=== PATIENT | male | born 1940 | race Caucasian/White ===

== ENCOUNTER 2017-09-04 15:41 | Inpatient (IN) | payer MEDICARE, BC ==
[~2017-09-04] VITALS: Ht 185.4 cm; Wt 102.3 kg
--- OUTSIDE RECORDS SUMMARY | 2017-09-04 15:44 | XMS REPORT | Clinical Summary ---
Author Author [facility] Address Unknown Phone Unavailable Care Team Providers Care Regulatory Compliance Officer Name Role Phone Trip Mcgee MD PCP Unavailable Allergies Not on File Current Medications Not on file Active Problems Not on file Encounters Date Type Specialty Care Team Description 02/02/2017 Hospital Radiology Dinah Santoro MD Calculus, renal Encounter 02/02/2017 Transcribe Access Dinah Santoro MD Calculus, renal ( Primary Orders Dx) after 09/03/2016 Social History Tobacco Use Types Packs/Day Years Used Date Never Assessed Sex Assigned at Date Recorded Not on file Last Filed Vital Signs Not on file Plan of Treatment Health Maintenance Due Date Last Done Comments COLONOSCOPY 1992 ZOSTER VACCINE 2002 PNEUMOCOCCAL 10/20/2007 POLYSACCHARIDE VACCINE AGE 65 AND OVER PNEUMOCOCCAL-13 10/20/2007 INFLUENZA VACCINE 01/19/2017 Results * XR Kub Kidney Ureter Bladder (02/02/2017 4:40 PM) Specimen Performing Laboratory [facility] [address] [place] [address] Narrative EXAMINATION:XR KUB KIDNEY URETER BLADDER CLINICAL HISTORY:N20.0 Calculus of kidney, N20.0 COMPARISON:None. IMPRESSION: 1.No definite stones are seen overlying the kidneys bilaterally. There is a calcific density in the right pelvis measuring 3 mm more likely related to a phlebolith although a distal right ureteral stone cannot be excluded. Correlation with the patient's symptoms for right flank pain is recommended. 2.Osseous structures are intact. The bowel gas pattern is normal. [id number] Procedure Note Interface, Radiology Results Incoming - 02/02/2017 4:48 PM CDT EXAMINATION: XR KUB KIDNEY URETER BLADDER CLINICAL HISTORY: N20.0 Calculus of kidney, N20.0 COMPARISON: None. IMPRESSION: 1. No definite stones are seen overlying the kidneys bilaterally. There is a calcific density in the right pelvis measuring 3 mm more likely related to a phlebolith although a distal right ureteral stone cannot be excluded. Correlation with the patient's symptoms for right flank pain is recommended. 2. Osseous structures are intact. The bowel gas pattern is normal. [id number] after 09/03/2016 Insurance Payer Benefit Subscriber ID Type Phone Address Plan / Group MEDICARE MEDICARE xxxxxxxxxx Medicare [place], [place] PART A AND B BCBS BCBS xxxxxxxxxxxx Indemnity PAR/TRAD PLAN
[2017-09-04] MEDS ORDERED: MELOXICAM7.5 MG PO (15:53)
[2017-09-04] MEDS ORDERED: IRON TABLET (15:53)
[2017-09-04] MEDS ORDERED: TAMSULOSIN HCL0.4 MG PO (15:53)
[2017-09-04] MEDS ORDERED: DEXILANT60 MG PO (15:53)
[2017-09-04] MEDS ORDERED: SLOW FE PO (15:54)
[2017-09-04] MEDS ORDERED: COLACE100 MG PO (15:55)
[2017-09-04] MEDS ORDERED: AREDS 2 PO (15:55)
[2017-09-04] MEDS ORDERED: PANTOPRAZOLE 40 MG 10ML VIAL IV STA (16:10)
[2017-09-04] MEDS ORDERED: LEVOFLOXACIN 500MG/D5W 100ML 100 ML IV STA (16:10)
[2017-09-04] MEDS ORDERED: ACETAMINOPHEN 325 MG TAB PO STA (16:10)
[2017-09-04] MEDS ORDERED: SODIUM CHLORIDE 0.9% 1000ML 1,000 ML IV STA ×4 (16:10→18:48)
[2017-09-04] MEDS ORDERED: CEFEPIME HCL 2 GM VIAL IV ONE (16:15)
[2017-09-04 16:28] LABS: BASOPHILS % 0.2 % (0.0-1.0); EOSINOPHILS % 0.2 % (0.0-6.0); HEMATOCRIT 39.9 % (38.2-49.6); HEMOGLOBIN 13.2 g/dL (14.0-18.0); LYMPHOCYTES # (AUTO) 0.2 (1.0-3.2); LYMPHOCYTES % 2.1 % (18.0-39.1); MEAN CORPUSCULAR HEMOGLOBIN 26.2 pg (28-32); MEAN CORPUSCULAR HGB CONC 33.1 g/dL (31-35); MEAN CORPUSCULAR VOLUME 79.2 fL (81-99); MONOCYTES % 0.4 % (4.4-11.3); NEUTROPHILS # (AUTO) 8.8 (2.1-6.9); NEUTROPHILS % 96.8 % (38.7-80.0); PLATELET COUNT 213 x10e3/uL (140-360); RED BLOOD COUNT 5.04 x10e6/uL (4.3-5.7); RED CELL DISTRIBUTION WIDTH 15.7 % (11.7-14.4)
[2017-09-04] MEDS ORDERED: ONDANSETRON HCL INJ 2 MG/ML VIAL IV PRN (16:30)
[2017-09-04 16:40] LABS: INR 1.25; PROTHROMBIN TIME 14.8 seconds (11.9-14.5)
[2017-09-04 16:41] LABS: PARTIAL THROMBOPLASTIN TIME 24.4 seconds (23.8-35.5)
[2017-09-04 16:51] LABS: ALBUMIN 2.9 g/dL (3.5-5.0); ALBUMIN/GLOBULIN RATIO 0.9 (0.8-2.0); ANION GAP 11.7 mmol/L (8-16); CALCIUM 8.6 mg/dL (8.4-10.2); CREATININE, SERUM 1.22 mg/dL (0.72-1.25); POTASSIUM 3.7 mmol/L (3.5-5.1)
[2017-09-04 16:52] LABS: KETONES,URINE TRACE (NEGATIVE); LEUKOCYTE ESTERASE ,URINE TRACE (NEGATIVE); NITRITE,URINE NEGATIVE (NEGATIVE); URINE UROBILINOGEN 4 mg/dL (0.2 - 1)
[2017-09-04 16:53] LABS: B-TYPE NATRIURETIC PEPTIDE2 99.2 pg/mL (0-100)
[2017-09-04 16:54] LABS: PROTEIN,URINE DIPSTICK 1+ (NEGATIVE)
[2017-09-04 16:55] LABS: BILIRUBIN,URINE 1+ (NEGATIVE); CLARITY,URINE HAZY (CLEAR); COLOR,URINE AMBER (YELLOW)
[2017-09-04 17:03] LABS: MAGNESIUM 1.2 MG/DL (1.3-2.1)
[2017-09-04 17:04] LABS: CREATINE KINASE MB 1.1 ng/mL (0-5.0); THYROID STIMULATING HORMONE 1.707 uIU/mL (0.350-4.940)
[2017-09-04 17:06] LABS: BACTERIA,URINE FEW /HPF; EPITHELIAL CELLS,URINE FEW /LPF; RBC,URINE 0-5 /HPF (0-5)
[2017-09-04 17:09] LABS: BAND NEUTROPHILS % (MANUAL) 13 %; LYMPHOCYTES % (MANUAL) 4 % (19-48); NEUTROPHILS % (MANUAL) 83 % (40-74)
[2017-09-04 17:10] LABS: PLATELET ESTIMATE ADEQUATE; PLATELET MORPHOLOGY COMMENT NORMAL; RBC MORPHOLOGY COMMENT NORMAL
[2017-09-04] MEDS ORDERED: MAGNESIUM SULFATE 2GM/50ML 50 ML IV ONE (17:15)
--- NOTE | 2017-09-04 17:54 | Diagnostic Imaging Report ---
EXAMINATION: CHEST SINGLE (PORTABLE) INDICATION: Fever. Severe shakes. COMPARISON: None FINDINGS: AP view TUBES and LINES: None. LUNGS: Lungs are well inflated. There is perihilar interstitial opacities, consistent with interstitial edema. PLEURA: No pleural effusion or pneumothorax. HEART AND MEDIASTINUM: The cardiomediastinal silhouette is unremarkable. There are atherosclerotic calcifications within the aorta. BONES AND SOFT TISSUES: No acute osseous lesion. Soft tissues are unremarkable. UPPER ABDOMEN: No free air under the diaphragm. IMPRESSION: Interstitial edema. Superimposed infection cannot be excluded. Signed by: Dr. Isrrael Kiran M.D. on 09/04/2017 5:50 PM
[2017-09-04] MEDS ORDERED: LEVOFLOXACIN 250MG/D5W 50ML 50 ML IV SCH (18:00)
--- OUTSIDE RECORDS SUMMARY | 2017-09-04 18:25 | XMS REPORT | Clinical Summary ---
Author Author [facility] Address Unknown Phone Unavailable Care Team Providers Care Scientist/Engineer Name Role Phone Trip Mcgee MD PCP [...] Bladder (02/02/2017 4:40 PM) Specimen Performing Laboratory [facility] [address] [place] [address] Narrative EXAMINATION:XR KUB KIDNEY URETER BLADDER CLINICAL [...] intact. The bowel gas pattern is normal. [id number] Procedure Note Interface, Radiology Results Incoming - [...] intact. The bowel gas pattern is normal. [id number] after 09/03/2016 Insurance Payer Benefit Subscriber ID Type Phone Address Plan / Group MEDICARE MEDICARE xxxxxxxxxx Medicare [place], [place] PART A [place] B BCBS BCBS xxxxxxxxxxxx Indemnity PAR/TRAD PLAN
--- OUTSIDE RECORDS SUMMARY | 2017-09-04 18:25 | XMS REPORT ---
Author Author [facility] Address Unknown Phone Unavailable Care Team Providers Care Investment Banking Manager Name Role Phone RABIA KERI Unavailable Unavailable Problems This patient has no known problems. Allergies, Adverse Reactions, Alerts This patient has no known allergies or adverse reactions. Medications This patient has no known medications. Results Test Description Test Time Test Comments Text Results Atomic Results Result Comments CHEST SINGLE (PORTABLE) [place] [address] Patient Name: LIZZIE KENDALL MR #: [id number] : 1940 Age/Sex: 76/M Req #: [id number] Adm Physician: Ordered by: KERI CAMARILLO MD, MD Report #: [id number] Location: ER Room/Bed: Procedure: [id number] DX/CHEST SINGLE (PORTABLE) Exam Date: 09/04/17 Exam Time: 1640 REPORT STATUS: Signed EXAMINATION : CHEST SINGLE (PORTABLE) INDICATION: Fever. Severe shakes. COMPARISON: None FINDINGS: AP view TUBES and LINES: None. LUNGS: Lungs are well inflated. There is perihilar interstitial opacities , consistent with interstitial edema. PLEURA: No pleural effusion or pneumothorax. HEART AND MEDIASTINUM: The cardiomediastinal silhouette is unremarkable. There are atherosclerotic calcifications within the aorta. BONES AND SOFT TISSUES: No acute osseous lesion. Soft tissues are unremarkable. UPPER ABDOMEN: No free air under the diaphragm. IMPRESSION: Interstitial edema. Superimposed infection cannot be excluded. Signed by: Dr. Shawn Kiran M.D. on 09/04/2017 5:50 PM Dictated By: SHAWN KIRAN MD 49 Transcribed By: BABAK on 09/04/171749 COPY TO: KERI CAMARILLO
--- NOTE | 2017-09-04 18:33 | Diagnostic Imaging Report ---
EXAM: CT Abdomen and Pelvis WITHOUT contrast INDICATION: Fever. Severe shakes. \S\STONE PROTOCOL COMPARISON: None. TECHNIQUE: Abdomen and pelvis were scanned utilizing a multidetector helical scanner from the lung base to the pubic symphysis without administration of IV contrast. Absence of intravenous contrast decreases sensitivity for detection of focal lesions and vascular pathology. Coronal and sagittal reformations were obtained. Stone protocol is performed. IV CONTRAST: None ORAL CONTRAST: Water COMPLICATIONS: None RADIATION DOSE: Total DLP: 814.44 mGy*cm Estimated effective dose: (DLP x 0.015 x size factor) mSv CTDIvol has been reviewed. It is below the limits set by the Radiation Protocol Committee (RPC). FINDINGS: LINES and TUBES: None. LOWER THORAX: There is bibasilar atelectasis. HEPATOBILIARY: No focal hepatic lesions. No biliary ductal dilation. Nonspecific pneumobilia in the right and left hepatic lobes. GALLBLADDER: No radio-opaque stones or sludge. No wall thickening. SPLEEN: Spleen is enlarged 13.8 cm in craniocaudal dimension. PANCREAS: No focal masses or ductal dilatation. ADRENALS: No adrenal nodules KIDNEYS/URETERS: No hydronephrosis. 2.0 cm cystic lesion in the superior pole of the kidney. 0.56 cm stone in the lower pole of the right kidney. GI TRACT: Focally enlarged sigmoid colon measuring up to 8 cm with eccentric masslike region. The central bulging measures 5.8 cm in length and 4.4 cm in thickness. There is numerous surrounding lymphadenopathy. There is adhesions/fistulous to adjacent small bowel loops (series 3 image 129). Appendix is not clearly identified. There is however no fat stranding or adenopathy in the right lower quadrant to suggest appendicitis. PELVIC ORGANS/BLADDER: Unremarkable. LYMPH NODES: Multiple mesenteric lymphadenopathy especially around the sigmoid colon. Additional more proximal mesenteric lymph node measuring 1.2 cm short axis (series 3 image 93). Multiple small delroy hepatis lymph nodes. VESSELS: There is mild atherosclerotic disease in the aorta and major arterial branches. PERITONEUM / RETROPERITONEUM: No free air or fluid. BONES: There are degenerative changes in the lumbar spine. SOFT TISSUES: Bilateral fat-containing inguinal hernia. IMPRESSION: 1. Focal enlarged sigmoid colon with eccentric bulging (5.8 cm in length) with adhesions/fistula to adjacent small bowel loops. Significant surrounding adenopathy as well as mesenteric lymphadenopathy. This is highly concerning for sigmoid adenocarcinoma. 2. Indeterminant pneumobilia. Correlate for possible recent ERCP. 3. 0.56 cm stone in lower pole of the right kidney. 4. Mild splenomegaly. Signed by: Dr. Isrrael Kiran M.D. on 09/04/2017 6:30 PM
[2017-09-04] MEDS ORDERED: METRONIDAZOLE 500MG/NS 100ML 100 ML IV ONE (19:00)
[2017-09-04] MEDS: ENOXAPARIN SOD INJ 40 MG/0.4 ML SYR SC SCH (20:20)
[2017-09-04] MEDS: SODIUM CHLORIDE 0.9% 1000ML 1,000 ML IV SCH (20:20)
[2017-09-04] MEDS: CEFEPIME HCL 2 GM VIAL IV SCH (20:39)
[2017-09-04] MEDS ORDERED: SODIUM CHLORIDE 0.9% 250ML 250 ML ONE (22:27)
[2017-09-05 00:14] VITALS: BP 106/63
[2017-09-05] MEDS: ACETAMINOPHEN 325 MG TAB PO PRN ×3 (00:41→23:55)
[2017-09-05 01:57] LABS: CREATINE KINASE MB 1.8 ng/mL (0-5.0)
--- NOTE | 2017-09-05 05:29 | Diagnostic Imaging Report ---
CHEST SINGLE (PORTABLE), 09/05/2017 7:00 AM Technique: CHEST SINGLE (PORTABLE) Comparison: Previous day Clinical history: Fever Findings: See Impression Impression: 1. Stable cardiomediastinal silhouette. 2. Mild bibasilar vascular crowding/atelectasis. 3. Stable blunting of the right costophrenic angle. Unchanged right apical pleural thickening. Recommend follow-up upright PA and lateral when feasible. Signed by: Dr Janette Argueta MD on 09/05/2017 5:25 AM
[2017-09-05 05:35] VITALS: BP 104/63
[2017-09-05] MEDS: METRONIDAZOLE 500MG/NS 100ML 100 ML IV SCH ×5 (05:54→23:55)
[2017-09-05] MEDS: CEFEPIME HCL 2 GM VIAL IV SCH ×2 (05:57→19:04)
[2017-09-05] MEDS: MAGNESIUM OXIDE 400 MG TAB PO SCH ×2 (10:40→16:39)
[2017-09-05] MEDS: SODIUM CHLORIDE 0.9% 1000ML 1,000 ML IV SCH ×3 (10:40→16:41)
[2017-09-05] MEDS: LEVOFLOXACIN 750MG/D5W 150ML 150 ML IV SCH (10:40)
[2017-09-05 12:11] VITALS: BP 132/60
[2017-09-05 12:44] LABS: BASOPHILS # (AUTO) 0.1 (0.0-0.1); BASOPHILS % 0.5 % (0.0-1.0); EOSINOPHILS # (AUTO) 0.1 (0.0-0.4); EOSINOPHILS % 0.2 % (0.0-6.0); HEMATOCRIT 39.9 % (38.2-49.6); HEMOGLOBIN 12.7 g/dL (14.0-18.0); LYMPHOCYTES % 3.3 % (18.0-39.1); MEAN CORPUSCULAR HEMOGLOBIN 26.1 pg (28-32); MEAN CORPUSCULAR HGB CONC 31.8 g/dL (31-35); MEAN CORPUSCULAR VOLUME 81.9 fL (81-99); MONOCYTES # (AUTO) 1.5 (0.2-0.8); MONOCYTES % 4.9 % (4.4-11.3); NEUTROPHILS # (AUTO) 26.7 (2.1-6.9); NEUTROPHILS % 89.6 % (38.7-80.0); PLATELET COUNT 219 x10e3/uL (140-360); RED BLOOD COUNT 4.87 x10e6/uL (4.3-5.7); RED CELL DISTRIBUTION WIDTH 16.4 % (11.7-14.4)
[2017-09-05 13:04] LABS: ALBUMIN 2.7 g/dL (3.5-5.0); ALBUMIN/GLOBULIN RATIO 0.8 (0.8-2.0); ANION GAP 12.1 mmol/L (8-16); CALCIUM 8.5 mg/dL (8.4-10.2); CREATININE, SERUM 1.19 mg/dL (0.72-1.25); POTASSIUM 4.1 mmol/L (3.5-5.1)
[2017-09-05 13:59] LABS: MAGNESIUM 1.5 MG/DL (1.3-2.1)
[2017-09-05 14:14] LABS: BAND NEUTROPHILS % (MANUAL) 7 %; EOSINOPHILS % (MANUAL) 1 % (0-7); LYMPHOCYTES % (MANUAL) 6 % (19-48); MONOCYTES % (MANUAL) 5 % (3.4-9.0); NEUTROPHILS % (MANUAL) 81 % (40-74); PLATELET ESTIMATE ADEQUATE; PLATELET MORPHOLOGY COMMENT NORMAL; RBC MORPHOLOGY COMMENT NORMAL
[2017-09-05 14:32] VITALS: BP 132/60
[2017-09-05 14:39] LABS: CREATINE KINASE MB 4.4 ng/mL (0-5.0)
--- NOTE | 2017-09-05 16:18 | Consultation ---
DATE OF CONSULTATION: September 05, 2017 NEUROLOGY CONSULT NOTE HISTORY OF PRESENT ILLNESS: Mr. Mendoza is a 76-year-old left-hand dominant man who presented to [facility] on September 04, 2017, with fever, urinary urgency/frequency, diarrhea, and involuntary movements. The involuntary movements are described as follows: The patient reports severe shaking in the arms and legs. Mr. Mendoza reports these movements "cannot be controlled". While experiencing shaking of his arms and legs, the patient is awake and alert. He is oriented to person, place, time, and situation. There is no tongue biting or bladder incontinence. Mr. Mendoza reports a single occurrence of bowel incontinence during one such episode. Mr. Mendoza reports the shaking in his arms and legs lasts for approximately 30-45 minutes, and then spontaneously resolves. This activity has occurred on 3 separate occasions in the past several months. The first occurrence was in March of 2017 in the setting of a high fever (104 degrees Fahrenheit). The patient reports not feeling well that day in March. It was not until returning home from work that day that he realized he had such a high fever. While at home, the shaking in the arms and legs began abruptly. The patient and his proceeded to a free-standing emergency center. The staff at that center informed the patient he was seriously ill and recommend he proceed to [facility] for further evaluation and treatment. By the time of his arrival at [facility], the shaking in his arms and legs had resolved. However, the symptoms recurred later that same day. Once again, the symptoms lasted for 30-45 minutes. Other than the shaking in the arms and legs, there were no other associated symptoms, including a fever. Over the next several weeks, Mr. Mendoza was seen by a neurologist as an outpatient. He underwent extensive testing, including MRIs of the brain, EEGs, extensive blood work, and other diagnostic studies. All studies were normal (per the patient). The etiology of the shaking in the patient's arms and legs was not found. On September 04, 2017, the patient once again experienced involuntary, uncontrollable shaking of the arms and legs in the setting of a high-grade fever (103.4 degrees Fahrenheit). The patient proceeded to the emergency center at [facility] for further evaluation. At the time of his arrival in the emergency center, the shaking in the arms and legs had dissipated. Diagnostic studies revealed the patient to have underyling infection(s). He was given antibiotics and admitted to the hospital for further evaluation and treatment. REVIEW OF SYSTEMS: Fever, rhinorrhea, vomiting, diarrhea, and involuntary movements as described in the history of present illness. Seasonal allergies. Otherwise, a 12-point review of systems is negative. PAST MEDICAL HISTORY: Severe asthma as a child, arthritis, multiple urinary tract infections, GERD, prior history of migraines, benign prostatic hypertrophy, peripheral vascular disease, polio in childhood. PAST SURGICAL HISTORY: Right lung lobectomy (benign growth), right inguinal hernia repair, treatment of varicose veins, multiple procedures on the eyes, including bilateral cataract surgery and surgeries for glaucoma. PAST HOSPITALIZATIONS: Multiple surgeries and procedures as listed, urinary tract infection. FAMILY HISTORY: The patient's paternal and maternal grandparents are . Their medical histories are unknown. The patient's father is from multiorgan failure. His father had a history of arthritis and gout. The patient's mother is from an unknown GI cancer. Mr. Mendoza has 1 sister who has migraines and arthritis. The patient has 2 sons. The eldest son has a history of alcohol abuse. The 2nd son was born with a congenital cardiac valvular defect, which was repaired within the last year (adulthood). SOCIAL HISTORY: The patient is . He completed school through the 11th grade. Mr. Mendoza is semi-retired. 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 The patient is a former smoker. He quit smoking 45+ years ago. He does not report alcohol or recreational drug use. HOME MEDICATIONS 1. Dexilant 60 mg by mouth daily. 2. Colace 100 mg by mouth daily. 3. Meloxicam 15 mg by mouth daily. 4. Tamsulosin 0.4 mg by mouth daily. 5. Iron supplement 1 tab by mouth daily. ALLERGIES: NO KNOWN DRUG ALLERGIES. NO KNOWN FOOD ALLERGIES. NO KNOWN ALLERGIES TO LATEX. NO KNOWN ALLERGIES TO CONTRAST MATERIALS. PHYSICAL EXAMINATION VITAL SIGNS: Height 73 inches, weight 238 pounds, BMI 31.4 kg per meter squared, blood pressure 114/75 mmHg, pulse 85 beats per minute, respiratory rate 17 breaths per minute, oxygen saturation 98% on room air. GENERAL: The patient is awake and alert. Does not appear distressed. HEENT: Normocephalic and atraumatic. Pupils are surgical. Mucous membranes are moist. NECK: Supple. No appreciable thyromegaly. No appreciable carotid bruits. CARDIOVASCULAR: S1 and S2. Regular rate and rhythm. No murmurs, rubs or gallops. RESPIRATORY: Clear to auscultation bilaterally. No wheezes, rhonchi or rales. EXTREMITIES: The skin is warm and dry. No clubbing, cyanosis or edema. The posterior tibial and dorsalis pedis pulses are 1+ and symmetric. SKIN: No rashes or lesions. NEUROLOGIC: Memory/attention: The patient is awake, alert, and oriented to person, place, time, and situation. CRANIAL NERVES: Cranial nerve I: Not tested. Cranial nerve II, III, IV, : Pupils are surgical. Extraocular movements intact. No nystagmus. Cranial nerve V: Sensation to light touch and pinprick is intact in the bilateral V1-V3 distributions. Strength of the temporalis and masseter muscles is within normal limits. Cranial nerve VII: The face is symmetric, as well as facial movements. Strength is within normal limits. Cranial nerve VIII: Hearing is diminished to finger rub bilaterally. Cranial nerve IX and X: The soft palate elevates equally and symmetrically. Cranial nerve XI: Normal strength of the bilateral sternocleidomastoid and trapezius muscles. Cranial nerve XII: The tongue protrudes midline and moves symmetrically from side to side. STRENGTH: Bulk is normal and strength is 5/5 in the bilateral deltoids, biceps, triceps, wrist flexors and extensors, finger flexors and extensors, intrinsic hand muscles, hip flexors, knee flexors and extensors, ankle dorsiflexion and plantar flexion, and intrinsic foot muscles. Tone is normal. DTRS: Deep tendon reflexes are 2+ and symmetric at the triceps, biceps, brachioradialis, patellas, and Achilles. Plantar responses are flexor bilaterally. SENSATION: Sensation is intact to light touch and pinprick in both arms and both legs. CEREBELLAR: Evukxr-oxbj-hfiyoo and heel-langford movements are intact without dysmetria or other impairment. Rapid alternating movements are intact. GAIT: Deferred. SPEECH: Spontaneous speech is normal without appreciable dysarthria or aphasia. Repetition is intact. INVOLUNTARY MOVEMENTS: None. PRONATOR DRIFT: None. LABORATORY DATA: Sodium 138, potassium 4.1, chloride 109, carbon dioxide 21, anion gap 12.1, BUN 22, creatinine 1.19. Estimated GFR 60. BUN to creatinine ratio 18. Glucose 90. Lactic acid 28.9. Calcium 8.5, phosphorus 2 and magnesium 1.5. Total bilirubin 1.2, AST 126, ALT 88, alkaline phosphatase 89, total protein 6.2, albumin 2.7, globulin 3.8. Albumin to globulin ratio 0.8. Creatinine kinase 105, 469. CK-MB 1.1 and 1.8. Troponin 0.003, 0.006. B-naturetic peptide 99.2. Lipase 11. TSH 1.707. CBC with differential and platelets revealed a white blood cell count of 29.75 with 89.6% neutrophils, 3.3% lymphocytes, 4.9% monocytes, 0.2% eosinophils, 0.5% basophils. Hemoglobin and hematocrit are 12.7 and 39.9 respectively. Platelet count 219,000. PT 14.8, INR 1.25 and PTT 24.4. Urinalysis demonstrates findings compatible with urinary tract infection. Influenza type A and B antigen negative. ASSESSMENT AND PLAN: Mr. Mendoza is a 76-year-old left-hand dominant man admitted with episodic involuntary movements in the setting of infection with a high fever(s). At present, the patient's neurological examination is nonfocal. His laboratory data has been reviewed and is documented above. As detailed in the history of present illness, Mr. Mendoza has experienced 3 episodes of uncontrolled shaking of the arms and legs since March of 2017. In each instance, the involuntary movements lasted for approximately 30-45 minutes. Given the description of the episodes provided by the patient and his , the greatest concern would be an underlying seizure disorder. However, it is improbable the described episodes represent seizures. First, the patient is awake and alert and oriented during the events, which is atypical for generalized seizures. Secondly, the events last for 30-45 minutes. The vast majority of seizures last 60-90 seconds at the longest. A seizure lasting 30-45 minutes uninterrupted would result in severe brain damage, which the patient does not have. As an outpatient, Mr. Mendoza has been evaluated by Dr. Danielle with MRIs of the brain, EEGs, blood work, and other diagnostic studies. The results of all diagnostic studies have been normal, per the patient. Given the history of involuntary movements in the setting of infection(s) with high fever, it is strongly suspected the patient is experiencing chills, though the cause of their seemingly exaggerated nature is unclear. There are no recommendations for further evaluation at this time. An attempt will be made to obtain his prior medical records for review. The symptoms will be discussed with some colleagues specializing in movement disorders to see if other diagnostic studies are necessary. Treatment of the other medical comorbidities is deferred to the primary and other services. Thank you for this consultation. I will continue to follow the patient while he remains in the hospital. TIME SPENT: 70 minutes. Job#: [id number] TRI FITZGERALD
--- NOTE | 2017-09-05 16:24 | Consultation ---
DATE OF CONSULTATION: September 05, 2017 UROLOGY CONSULTATION REASON FOR CONSULTATION: Gross hematuria. HISTORY OF PRESENT ILLNESS: Alli Mendoza Jr., is a 76-year-old man who was previously diagnosed with having right urolithiasis on a CT at [facility]. The patient saw Dr. Danny Ricks, followed up one time, no management was performed, and he did not wish to follow up with Dr. Ricks any longer. Patient also saw Dr. Dinah Santoro in the Medical Center, who told him his stone was only 2 mm in size according to studies performed in the Medical Center. The patient was noted to have some frequency, urgency, urge-type urinary incontinence, and has been managed for presumed BPH with Flomax twice a day. The patient denies previous urinary tract infections or previous bouts with hematuria. Patient is also pending evaluation by the GI and general surgery services for mass-like conglomeration surrounding the sigmoid colon. Patient denies any previous urological surgery. PAST MEDICAL AND SURGICAL HISTORY 1. Strange neurologically related movements that are not seizures. 2. Status post right inguinal hernia with mesh. 3. Hypertension. 4. Aortic valve disease. 5. Status post colonoscopy and polypectomy. 6. Status post right upper lobe lobectomy for a cystic lesion that proved to be noncancerous. 7. Ex-smoker. ALLERGIES: NONE KNOWN. CURRENT MEDICATIONS: Please refer to the MAR. The patient does take meloxicam as well as nightly ibuprofen but denies any other blood thinners. SOCIAL HISTORY: The patient quit smoking in 1971. He denies current smoking, ethanol or drug abuse. 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 He has a very supportive family at the bedside. FAMILY HISTORY: Noncontributory to the active urological problems. REVIEW OF SYSTEMS: As consistent with above history of present illness and past medical history. It also includes 2 positive blood cultures, otherwise negative for all other systems. PHYSICAL EXAMINATION GENERAL: A relatively healthy-appearing 76-year-old man walking around the room in no apparent distress. VITAL SIGNS: He is currently afebrile. His vital signs are currently stable. ABDOMEN: Soft, nondistended, nontender, without costovertebral angle tenderness. Kidneys are not palpable, without hepatosplenomegaly. No obvious evidence of hernia. GENITOURINARY: Testes descended bilaterally. Testes are bilaterally somewhat atrophic. The patient has a normal circumcised male phallus with normal meatus without any lesion. DIGITAL RECTAL EXAMINATION: Deferred at the present time. For the remaining physical examination and systems, please refer to the admission history and physical on the chart. LABORATORY STUDIES: CT scan of the abdomen and pelvis shows a focally enlarged sigmoid colon with eccentric bulging of 5.8 cm in length with adhesion/fistula to adjacent small-bowel loops and significant surrounding adenopathy as well as a 5.6 mm stone in the lower pole of the right kidney and some mild splenomegaly. The patient's sodium was low at 134. Today it is normalized at 138. Patient's magnesium was also low at 1.2 and it is normalized at 1.5. Creatinine is normal at 1.19. White blood cell count is elevated at 29,750 with a hemoglobin of 12.7. Platelets are normal at 219. Urinalysis showed 1+ bilirubin with 6-10 WBCs, 0-5 RBCs. A urine culture is pending, blood culture is positive x2, and additional workup is pending. ASSESSMENT 1. Gross hematuria. 2. Right nephrolithiasis. 3. Possible urinary tract infection. 4. Leukocytosis. 5. Anemia. 6. Hyponatremia that is better. 7. Hypomagnesemia that is better. 8. Overactive bladder. 9. Urge-type urinary incontinence. 10. Benign prostatic hypertrophy. 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 PLAN 1. I am eagerly awaiting the input of the general surgery and gastroenterology services. 2. Patient definitely needs cystoscopy and retrogrades. However, this may be performed in conjunction with the general surgery procedure if needed. 3. The patient will need lithotripsy of this significantly sized stone in the right kidney that is currently asymptomatic. This will be done electively as an outpatient when the patient is in his normal usual state of health. 4. Ongoing urological followup is a must. Thank you very much for involving us in the care of your patient. We will be happy to follow him along with you as well as an outpatient. Job#: [id number] EV cc:MD JEAN ADAMS MD MAURICE HADDAD, MD COURTNEY PRESTON, MD
[2017-09-05] MEDS: ENOXAPARIN SOD INJ 40 MG/0.4 ML SYR SC SCH (16:40)
--- NOTE | 2017-09-05 16:42 | Diagnostic Imaging Report ---
EXAM: Abdomen 3 Views INDICATION: \S\VISUALIZE STONE AND COMPARE TO CT \S\[id number] \S\1440 COMPARISON: CT dated 09/04/2017 FINDINGS: Limited by body habitus. Nonobstructive bowel gas pattern. No signs of pneumoperitoneum. No definite calcification overlying renal shadows. Degenerative changes of spine. Neck sign right pelvic phlebolith. IMPRESSION: 1. No evidence of nephrolithiasis. There previously noted right renal calculus is not visualized, likely due to limitations of the study. 2. Nonobstructive bowel gas pattern. Signed by: Dr. Ortiz Shah MD on 09/05/2017 4:38 PM
[2017-09-05 20:51] VITALS: BP 138/67
[2017-09-06] VITALS (8 sets, daily range): BP systolic 124–164; BP diastolic 60–78
[2017-09-06] MEDS: SODIUM CHLORIDE 0.9% 1000ML 1,000 ML IV SCH ×4 (00:37→21:40)
[2017-09-06] MEDS: CEFEPIME HCL 2 GM VIAL IV SCH ×2 (05:27→17:40)
[2017-09-06] MEDS: METRONIDAZOLE 500MG/NS 100ML 100 ML IV SCH ×3 (05:27→21:40)
[2017-09-06 06:51] LABS: BASOPHILS # (AUTO) 0.1 (0.0-0.1); BASOPHILS % 0.3 % (0.0-1.0); EOSINOPHILS # (AUTO) 0.2 (0.0-0.4); EOSINOPHILS % 0.9 % (0.0-6.0); HEMATOCRIT 36.6 % (38.2-49.6); LYMPHOCYTES % 4.6 % (18.0-39.1); MEAN CORPUSCULAR HEMOGLOBIN 26.3 pg (28-32); MEAN CORPUSCULAR HGB CONC 32.8 g/dL (31-35); MEAN CORPUSCULAR VOLUME 80.1 fL (81-99); MONOCYTES # (AUTO) 1.7 (0.2-0.8); MONOCYTES % 7.4 % (4.4-11.3); NEUTROPHILS # (AUTO) 19.4 (2.1-6.9); NEUTROPHILS % 85.8 % (38.7-80.0); PLATELET COUNT 188 x10e3/uL (140-360); RED BLOOD COUNT 4.57 x10e6/uL (4.3-5.7); RED CELL DISTRIBUTION WIDTH 16.3 % (11.7-14.4)
[2017-09-06 07:27] LABS: ALANINE AMINOTRANSFERASE 62 IU/L (0-55); ALBUMIN 2.5 g/dL (3.5-5.0); ALBUMIN/GLOBULIN RATIO 0.8 (0.8-2.0); ALKALINE PHOSPHATASE 78 IU/L (40-150); ANION GAP 10.7 mmol/L (8-16); BLOOD UREA NITROGEN 19 mg/dL (7-26); BUN/CREATININE RATIO 17 (6-25); CALCIUM 8.4 mg/dL (8.4-10.2); CARBON DIOXIDE 22 mmol/L (22-29); CHLORIDE 108 mmol/L (98-107); CREATININE, SERUM 1.09 mg/dL (0.72-1.25); EST GLOMERULAR FILTRATION RATE > 60 ML/MIN (60-); GLUCOSE 87 mg/dL (74-118); POTASSIUM 3.7 mmol/L (3.5-5.1); SODIUM 137 mmol/L (136-145)
[2017-09-06 08:00] LABS: BAND NEUTROPHILS % (MANUAL) 1 %; LYMPHOCYTES % (MANUAL) 3 % (19-48); MONOCYTES % (MANUAL) 6 % (3.4-9.0); NEUTROPHILS % (MANUAL) 90 % (40-74)
[2017-09-06] MEDS: TAMSULOSIN HCL 0.4 MG CAP PO SCH (08:00)
[2017-09-06 08:02] LABS: PLATELET ESTIMATE ADEQUATE; PLATELET MORPHOLOGY COMMENT NORMAL; RBC MORPHOLOGY COMMENT NORMAL
[2017-09-06] MEDS: DOCUSATE SODIUM 100 MG CAP PO SCH (09:47)
[2017-09-06] MEDS: MELOXICAM 7.5 MG TAB PO SCH (09:47)
[2017-09-06] MEDS: LEVOFLOXACIN 750MG/D5W 150ML 150 ML IV SCH (09:47)
[2017-09-06] MEDS: PANTOPRAZOLE SOD 40 MG TABEC PO SCH (09:47)
[2017-09-06] MEDS: MAGNESIUM OXIDE 400 MG TAB PO SCH ×2 (09:47→17:39)
[2017-09-06] MEDS: SLOW FE PO SCH (09:47)
[2017-09-06] MEDS: ACETAMINOPHEN 325 MG TAB PO PRN ×2 (14:24→14:42)
--- NOTE | 2017-09-06 16:16 | Consultation ---
DATE OF CONSULTATION: REASON FOR CONSULTATION: UTI. HISTORY OF PRESENT ILLNESS: This patient is a very pleasant, 76-year-old white gentleman who comes into the hospital with fever, chills, urgency and frequency. The patient apparently had in November really bad infection. The patient also had some jerky movement and neurology was consulted. When I saw the patient, he was mainly complaining of fever, chills and some suprapubic discomfort. PAST MEDICAL HISTORY: Severe asthma as a child, arthritis, multiple UTI's. Recently GERD, migraine, benign prostatic hypertrophy, peripheral vascular disease, polio as a child. PAST SURGICAL HISTORY: Right lung lobectomy for benign tumor. Right inguinal hernia repair, treatment of varicose veins, multiple procedures. HOSPITALIZATIONS: Multiple, for UTI recently. HOME MEDICATIONS: He is on Dexilant, Colace, meloxicam and iron supplement. ALLERGIES: NKA. SOCIAL HISTORY: There is no smoking, drug abuse or alcohol use. FAMILY HISTORY: Significant for arthritis, gout. Mother had GI cancer. REVIEW OF SYSTEMS: GENERAL: At the present time, he is overall feeling better. HEENT: There is no headache, no visual changes, hearing changes. GI: There is no nausea, no vomiting, no diarrhea. CARDIAC: There is no arrhythmia. NEUROLOGIC: No seizure activity. LABORATORY DATA: Blood cultures showing gram-negative rods in 2 sets. His white count on admission was 9.09 and went up to 29, today 22.5. Hemoglobin of 13. Platelets of 213,000. Sodium 137, potassium 3.7, creatinine 1.09, lactic acid 28 on admission. AST 68. PHYSICAL EXAMINATION: GENERAL: He is currently alert, oriented and does not seem to be in acute distress. VITALS: Stable, currently afebrile. HEENT: Not icteric. Normocephalic. NECK: Supple. CHEST: Clear bilaterally. COR: S1 and S2, no murmur. ABDOMEN: Soft. Bowel sounds present. No tenderness. EXTREMITIES: No edema. SKIN: There is no rash. IMPRESSION AND PLAN 1. Sepsis secondary to gram-negative, source probably pyelonephritis. He is currently on Levaquin and cefepime. Continue with the same until we get the culture and sensitivity. 2. Chronic kidney disease, probably stage II. Follow liver enzymes, probably secondary to early sepsis on admission, although needs to be further investigation. 3. CT scan showed a focal enlarged sigmoid colon with bulging with fistula, concerning for adenocarcinoma, probably needs surgical evaluation and GI evaluation. Will discuss with Dr. Isaacs. Will follow with you. Job#: [id number] NESTOR
[2017-09-06] MEDS: ENOXAPARIN SOD INJ 40 MG/0.4 ML SYR SC SCH (17:39)
[2017-09-07] VITALS (8 sets, daily range): BP systolic 136–162; BP diastolic 65–99
[2017-09-07] MEDS: CEFEPIME HCL 2 GM VIAL IV SCH ×2 (06:00→18:18)
[2017-09-07] MEDS: METRONIDAZOLE 500MG/NS 100ML 100 ML IV SCH ×3 (06:09→22:00)
[2017-09-07 07:39] LABS: BASOPHILS % 0.2 % (0.0-1.0); EOSINOPHILS # (AUTO) 0.2 (0.0-0.4); EOSINOPHILS % 1.2 % (0.0-6.0); HEMATOCRIT 37.1 % (38.2-49.6); HEMOGLOBIN 12.1 g/dL (14.0-18.0); LYMPHOCYTES % 6.3 % (18.0-39.1); MEAN CORPUSCULAR HEMOGLOBIN 26.1 pg (28-32); MEAN CORPUSCULAR HGB CONC 32.6 g/dL (31-35); MONOCYTES # (AUTO) 1.1 (0.2-0.8); MONOCYTES % 6.8 % (4.4-11.3); NEUTROPHILS # (AUTO) 14.1 (2.1-6.9); NEUTROPHILS % 84.9 % (38.7-80.0); PLATELET COUNT 207 x10e3/uL (140-360); RED BLOOD COUNT 4.64 x10e6/uL (4.3-5.7); RED CELL DISTRIBUTION WIDTH 16.4 % (11.7-14.4)
[2017-09-07] MEDS: SLOW FE PO SCH (09:00)
[2017-09-07] MEDS: DOCUSATE SODIUM 100 MG CAP PO SCH (10:32)
[2017-09-07] MEDS: LEVOFLOXACIN 750MG/D5W 150ML 150 ML IV SCH (10:32)
[2017-09-07] MEDS: TAMSULOSIN HCL 0.4 MG CAP PO SCH (10:32)
[2017-09-07] MEDS: SODIUM CHLORIDE 0.9% 1000ML 1,000 ML IV SCH ×2 (10:32→17:22)
[2017-09-07] MEDS: PANTOPRAZOLE SOD 40 MG TABEC PO SCH (10:33)
[2017-09-07] MEDS: MELOXICAM 7.5 MG TAB PO SCH (10:33)
[2017-09-07] MEDS: MAGNESIUM OXIDE 400 MG TAB PO SCH ×2 (10:33→17:42)
--- NOTE | 2017-09-07 11:03 | Consultation ---
DATE OF CONSULTATION: September 06, 2017 CONSULTATION TO: Dr. Mcgee Mr. Mendoza is a 76-year-old white male who has been referred to me for evaluation for possible mass in the sigmoid colon. The patient had presented with chills and frequency of urination and subsequently was admitted for further evaluation and treatment. HISTORY OF PAST ILLNESS 1. History of bronchial asthma. 2. History of arthritis. 3. History of multiple urinary tract infections. 4. History of GERD. 5. History of migraines. 6. History of BPH. 7. History of PAD. 8. The patient also has had right lung lobectomy for benign tumor. 9. Right inguinal hernia repair. 10. Varicose veins. SOCIAL HISTORY: Noncontributory. FAMILY HISTORY: Noncontributory. ALLERGIES: REPORTED NONE. MEDICATIONS AT THIS TIME 1. Levaquin. 2. Metronidazole. 3. Ondansetron. 4. Lovenox. 5. Cefepime. 6. Magnesium. 7. Tylenol. 8. Protonix. 9. Docusate. 10. Meloxicam. 11. Flomax. REVIEW OF SYSTEMS HEENT: Normal. CARDIAC: History of PAD. GI: History of GERD. Now a lesion in the sigmoid colon by CAT scan. : History of BPH. MUSCULOSKELETAL: Normal. SKIN AND BREASTS: Normal. NEUROENDOCRINE: Essentially normal. PHYSICAL EXAMINATION GENERAL: Moderately built male. No palpable adenopathy. HEART: Within normal limits. LUNGS: Clear. ABDOMEN: Obese. Some tenderness throughout. RECTAL: Exam deferred. CENTRAL NERVOUS SYSTEM: Essentially normal. EXTREMITIES: Essentially normal. LABS: Hemoglobin of 13.2, hematocrit 39.9. MCV slightly low at 79.2. MCHC normal at 33.1. RDW slightly high at 15.7. White count 9900 this day at 2:17; however, on 09/06/2017, white count went up to 22,500. Chemistry shows a sodium of 134, potassium 3.7, chloride 73, CO2 23, glucose 99, lactic acid high at 28.9. Calcium 8.6. Magnesium low at 1.2. Bilirubin 1.1, SGOT 15, SGPT 13, alkaline phosphatase 101. Total protein is low at 6.2. Albumin low at 2.9. TSH 1.7. Imaging showed the CAT scan of the abdomen to have focal enlarged sigmoid colon with eccentric bulging 5.8 cm with adhesions. Fistula to adjacent small bowel. Significant surrounding adenopathy as well as the mesenteric lymphadenopathy. Indeterminate pneumobilia. A 0.56 stone in the lower pole of the right kidney and mild splenomegaly. The blood cultures are positive for E. coli. Urine cultures are reported so far no growth. IMPRESSION 1. Possible colon malignancy. 2. Possible fistula with small intestine. 3. Splenomegaly. 4. Surrounding lymphadenopathy. 5. Leukemoid reaction. 6. Hypomagnesemia. 7. Hypoproteinemia. 8. Hypoalbuminemia. 9. Sepsis with Escherichia coli. 10. Kidney stones. PLAN, COMMENTS AND SUGGESTIONS: Suggest a CEA. Suggest very aggressive antibiotics. Suggest surgical consult. I will confine myself to hematology-oncology. Thank you very much for allowing me to participate in the management of this patient. Job#: [id number] cc:MD JEAN VILLA MD KENT SCHNELL, MD
[2017-09-07] MEDS: ERTAPENEM 1GM/NS 100ML 100 ML IV SCH (16:13)
[2017-09-07] MEDS: ENOXAPARIN SOD INJ 40 MG/0.4 ML SYR SC SCH (17:00)
[2017-09-07] MEDS: ACETAMINOPHEN 325 MG TAB PO PRN (17:42)
--- NOTE | 2017-09-07 17:46 | Diagnostic Imaging Report ---
PROCEDURE: A single AP view of the chest. COMPARISON: Patients [facility], , CHEST SINGLE (PORTABLE), 09/05/2017, 5:12. INDICATIONS: PICC LINE PLACEMENT FINDINGS: See impression. IMPRESSION: 1. interval placement of right-sided PICC line, which has its distal tip projecting in the proximal SVC. 2. No consolidation or effusion. Minimal bibasilar atelectasis. Stable blunting of the right costophrenic angle. Sung Gay M.D. Dictated by: Sung Gay M.D. on 09/07/2017 at 17:46 Electronically approved by: Sung Gay M.D. on 09/07/2017 at 17:46
[2017-09-08] VITALS (8 sets, daily range): BP systolic 146–162; BP diastolic 74–99
[2017-09-08] MEDS: SODIUM CHLORIDE 0.9% 1000ML 1,000 ML IV SCH ×3 (00:27→17:27)
[2017-09-08] MEDS: ACETAMINOPHEN 325 MG TAB PO PRN ×2 (05:07→21:50)
[2017-09-08] MEDS: CEFEPIME HCL 2 GM VIAL IV SCH ×2 (05:28→18:00)
[2017-09-08] MEDS: METRONIDAZOLE 500MG/NS 100ML 100 ML IV SCH ×2 (05:36→13:41)
[2017-09-08 07:26] LABS: BASOPHILS % 0.2 % (0.0-1.0); EOSINOPHILS # (AUTO) 0.3 (0.0-0.4); EOSINOPHILS % 2.2 % (0.0-6.0); HEMATOCRIT 37.9 % (38.2-49.6); HEMOGLOBIN 12.3 g/dL (14.0-18.0); LYMPHOCYTES # (AUTO) 1.4 (1.0-3.2); LYMPHOCYTES % 10.9 % (18.0-39.1); MEAN CORPUSCULAR HEMOGLOBIN 25.9 pg (28-32); MEAN CORPUSCULAR HGB CONC 32.5 g/dL (31-35); MONOCYTES % 7.9 % (4.4-11.3); NEUTROPHILS # (AUTO) 9.7 (2.1-6.9); NEUTROPHILS % 78.1 % (38.7-80.0); PLATELET COUNT 227 x10e3/uL (140-360); RED BLOOD COUNT 4.74 x10e6/uL (4.3-5.7); RED CELL DISTRIBUTION WIDTH 16.2 % (11.7-14.4)
[2017-09-08 08:05] LABS: ALANINE AMINOTRANSFERASE 36 IU/L (0-55); ALBUMIN 2.6 g/dL (3.5-5.0); ALBUMIN/GLOBULIN RATIO 0.7 (0.8-2.0); ALKALINE PHOSPHATASE 91 IU/L (40-150); ANION GAP 9.7 mmol/L (8-16); BLOOD UREA NITROGEN 15 mg/dL (7-26); BUN/CREATININE RATIO 17 (6-25); CALCIUM 8.2 mg/dL (8.4-10.2); CARBON DIOXIDE 24 mmol/L (22-29); CHLORIDE 106 mmol/L (98-107); CREATININE, SERUM 0.86 mg/dL (0.72-1.25); EST GLOMERULAR FILTRATION RATE > 60 ML/MIN (60-); GLUCOSE 89 mg/dL (74-118); POTASSIUM 3.7 mmol/L (3.5-5.1); SODIUM 136 mmol/L (136-145)
[2017-09-08] MEDS: SLOW FE PO SCH (09:00)
[2017-09-08] MEDS: PANTOPRAZOLE SOD 40 MG TABEC PO SCH (10:20)
[2017-09-08] MEDS: MAGNESIUM OXIDE 400 MG TAB PO SCH ×2 (10:20→18:00)
[2017-09-08] MEDS: LEVOFLOXACIN 750MG/D5W 150ML 150 ML IV SCH (10:20)
[2017-09-08] MEDS: MELOXICAM 7.5 MG TAB PO SCH (10:20)
[2017-09-08] MEDS: TAMSULOSIN HCL 0.4 MG CAP PO SCH (10:20)
[2017-09-08] MEDS: DOCUSATE SODIUM 100 MG CAP PO SCH (10:20)
[2017-09-08] MEDS: ERTAPENEM 1GM/NS 100ML 100 ML IV SCH (13:42)
[2017-09-08] MEDS: ENOXAPARIN SOD INJ 40 MG/0.4 ML SYR SC SCH (17:00)
[2017-09-08] MEDS: CIPROFLOXACIN 500 MG TAB PO SCH (18:00)
[2017-09-08 18:25] LABS: BASOPHILS % 0.5 % (0.0-1.0); EOSINOPHILS # (AUTO) 0.2 (0.0-0.4); EOSINOPHILS % 2.6 % (0.0-6.0); HEMATOCRIT 37.6 % (38.2-49.6); HEMOGLOBIN 12.1 g/dL (14.0-18.0); LYMPHOCYTES # (AUTO) 1.2 (1.0-3.2); LYMPHOCYTES % 13.1 % (18.0-39.1); MEAN CORPUSCULAR HEMOGLOBIN 26.1 pg (28-32); MEAN CORPUSCULAR HGB CONC 32.2 g/dL (31-35); MONOCYTES # (AUTO) 0.8 (0.2-0.8); NEUTROPHILS # (AUTO) 6.5 (2.1-6.9); NEUTROPHILS % 73.7 % (38.7-80.0); PLATELET COUNT 215 x10e3/uL (140-360); RED BLOOD COUNT 4.64 x10e6/uL (4.3-5.7); RED CELL DISTRIBUTION WIDTH 16.3 % (11.7-14.4)
[2017-09-09] VITALS (7 sets, daily range): BP systolic 147–178; BP diastolic 72–83
[2017-09-09] MEDS: SODIUM CHLORIDE 0.9% 1000ML 1,000 ML IV SCH ×3 (00:27→17:33)
[2017-09-09] MEDS: ACETAMINOPHEN 325 MG TAB PO PRN (04:48)
[2017-09-09] MEDS: CEFEPIME HCL 2 GM VIAL IV SCH (06:32)
[2017-09-09] MEDS: SLOW FE PO SCH (09:00)
[2017-09-09] MEDS: DOCUSATE SODIUM 100 MG CAP PO SCH (09:45)
[2017-09-09] MEDS: MELOXICAM 7.5 MG TAB PO SCH (09:45)
[2017-09-09] MEDS: MAGNESIUM OXIDE 400 MG TAB PO SCH ×2 (09:45→17:33)
[2017-09-09] MEDS: TAMSULOSIN HCL 0.4 MG CAP PO SCH (09:45)
[2017-09-09] MEDS: PANTOPRAZOLE SOD 40 MG TABEC PO SCH (09:45)
[2017-09-09] MEDS: CIPROFLOXACIN 500 MG TAB PO SCH ×2 (09:45→17:33)
[2017-09-09] MEDS: ERTAPENEM 1GM/NS 100ML 100 ML IV SCH (13:31)
[2017-09-09] MEDS: ENOXAPARIN SOD INJ 40 MG/0.4 ML SYR SC SCH (16:56)
[2017-09-10] VITALS (8 sets, daily range): BP systolic 158–166; BP diastolic 74–84
[2017-09-10] MEDS: SODIUM CHLORIDE 0.9% 1000ML 1,000 ML IV SCH ×2 (00:15→08:27)
[2017-09-10] MEDS ORDERED: ACETAMINOPHEN 1000 MG/100 ML IV STA (04:40)
[2017-09-10 06:18] LABS: BASOPHILS # (AUTO) 0.1 (0.0-0.1); BASOPHILS % 0.4 % (0.0-1.0); EOSINOPHILS # (AUTO) 0.3 (0.0-0.4); EOSINOPHILS % 2.4 % (0.0-6.0); HEMATOCRIT 37.9 % (38.2-49.6); HEMOGLOBIN 12.5 g/dL (14.0-18.0); LYMPHOCYTES # (AUTO) 1.7 (1.0-3.2); LYMPHOCYTES % 13.8 % (18.0-39.1); MEAN CORPUSCULAR VOLUME 78.8 fL (81-99); MONOCYTES # (AUTO) 1.1 (0.2-0.8); NEUTROPHILS # (AUTO) 8.8 (2.1-6.9); NEUTROPHILS % 73.2 % (38.7-80.0); PLATELET COUNT 266 x10e3/uL (140-360); RED BLOOD COUNT 4.81 x10e6/uL (4.3-5.7); RED CELL DISTRIBUTION WIDTH 16.1 % (11.7-14.4)
[2017-09-10 06:41] LABS: ALANINE AMINOTRANSFERASE 27 IU/L (0-55); ALBUMIN 2.7 g/dL (3.5-5.0); ALBUMIN/GLOBULIN RATIO 0.8 (0.8-2.0); ALKALINE PHOSPHATASE 92 IU/L (40-150); ANION GAP 10.6 mmol/L (8-16); BLOOD UREA NITROGEN 12 mg/dL (7-26); BUN/CREATININE RATIO 15 (6-25); CALCIUM 8.4 mg/dL (8.4-10.2); CARBON DIOXIDE 25 mmol/L (22-29); CHLORIDE 105 mmol/L (98-107); CREATININE, SERUM 0.81 mg/dL (0.72-1.25); EST GLOMERULAR FILTRATION RATE > 60 ML/MIN (60-); GLUCOSE 92 mg/dL (74-118); POTASSIUM 3.6 mmol/L (3.5-5.1); SODIUM 137 mmol/L (136-145)
[2017-09-10] MEDS: SLOW FE PO SCH (09:00)
[2017-09-10] MEDS: DOCUSATE SODIUM 100 MG CAP PO SCH (09:00)
[2017-09-10] MEDS ORDERED: IOPAMIDOL 610MG/1ML 300 MG/ML VIAL IV ONE (10:35)
[2017-09-10] MEDS ORDERED: BELLADONNA/OPIUM 60 MG SUPP PR ONE (10:35)
[2017-09-10] MEDS: MELOXICAM 7.5 MG TAB PO SCH (13:24)
[2017-09-10] MEDS: CIPROFLOXACIN 500 MG TAB PO SCH ×2 (13:24→17:36)
[2017-09-10] MEDS: MAGNESIUM OXIDE 400 MG TAB PO SCH ×2 (13:24→17:36)
[2017-09-10] MEDS: ERTAPENEM 1GM/NS 100ML 100 ML IV SCH (13:25)
[2017-09-10] MEDS: PANTOPRAZOLE SOD 40 MG TABEC PO SCH (13:25)
[2017-09-10] MEDS ORDERED: DEXAMETHASONE SOD PHOS INJ 4 MG/ML VIAL ONE (14:33)
[2017-09-10] MEDS ORDERED: SEVOFLURANE INHAL SOLN 250 ML PEN BTL ONE (14:33)
[2017-09-10] MEDS ORDERED: LIDOCAINE HCL 2% LOCAL INJ 5 ML SDV VIAL INJ ONE (14:33)
[2017-09-10] MEDS ORDERED: PROPOFOL IV EMULSION 10 MG/ML 20 ML VIAL ONE (14:33)
[2017-09-10] MEDS: TAMSULOSIN HCL 0.4 MG CAP PO SCH (21:00)
[2017-09-11] VITALS (8 sets, daily range): BP systolic 143–174; BP diastolic 70–79
[2017-09-11 07:22] LABS: BASOPHILS % 0.2 % (0.0-1.0); EOSINOPHILS # (AUTO) 0.1 (0.0-0.4); EOSINOPHILS % 0.6 % (0.0-6.0); HEMATOCRIT 38.4 % (38.2-49.6); HEMOGLOBIN 12.4 g/dL (14.0-18.0); LYMPHOCYTES # (AUTO) 1.8 (1.0-3.2); LYMPHOCYTES % 12.1 % (18.0-39.1); MEAN CORPUSCULAR HEMOGLOBIN 25.9 pg (28-32); MEAN CORPUSCULAR HGB CONC 32.3 g/dL (31-35); MEAN CORPUSCULAR VOLUME 80.3 fL (81-99); MONOCYTES # (AUTO) 0.8 (0.2-0.8); MONOCYTES % 5.7 % (4.4-11.3); NEUTROPHILS # (AUTO) 11.7 (2.1-6.9); NEUTROPHILS % 80.4 % (38.7-80.0); PLATELET COUNT 307 x10e3/uL (140-360); RED BLOOD COUNT 4.78 x10e6/uL (4.3-5.7)
[2017-09-11] MEDS: TAMSULOSIN HCL 0.4 MG CAP PO SCH ×2 (08:39→20:23)
[2017-09-11] MEDS: CIPROFLOXACIN 500 MG TAB PO SCH ×2 (08:39→16:53)
[2017-09-11] MEDS: FINASTERIDE 5 MG TAB PO SCH (08:40)
[2017-09-11] MEDS: DOCUSATE SODIUM 100 MG CAP PO SCH (08:40)
[2017-09-11] MEDS: MELOXICAM 7.5 MG TAB PO SCH (08:40)
[2017-09-11] MEDS: SLOW FE PO SCH (08:40)
[2017-09-11] MEDS: PANTOPRAZOLE SOD 40 MG TABEC PO SCH (08:40)
[2017-09-11] MEDS: MAGNESIUM OXIDE 400 MG TAB PO SCH ×2 (08:40→16:53)
[2017-09-11] MEDS: ERTAPENEM 1GM/NS 100ML 100 ML IV SCH (13:40)
[2017-09-12] VITALS (7 sets, daily range): BP systolic 141–179; BP diastolic 65–80
[2017-09-12] MEDS: ACETAMINOPHEN 325 MG TAB PO PRN (03:56)
[2017-09-12 05:27] LABS: BASOPHILS % 0.4 % (0.0-1.0); EOSINOPHILS # (AUTO) 0.3 (0.0-0.4); EOSINOPHILS % 2.8 % (0.0-6.0); HEMATOCRIT 35.8 % (38.2-49.6); HEMOGLOBIN 11.7 g/dL (14.0-18.0); MEAN CORPUSCULAR HGB CONC 32.7 g/dL (31-35); MEAN CORPUSCULAR VOLUME 79.6 fL (81-99); MONOCYTES # (AUTO) 0.8 (0.2-0.8); MONOCYTES % 7.9 % (4.4-11.3); NEUTROPHILS # (AUTO) 7.3 (2.1-6.9); NEUTROPHILS % 69.1 % (38.7-80.0); PLATELET COUNT 269 x10e3/uL (140-360); RED CELL DISTRIBUTION WIDTH 16.2 % (11.7-14.4)
[2017-09-12] MEDS: TAMSULOSIN HCL 0.4 MG CAP PO SCH ×2 (08:29→20:47)
[2017-09-12] MEDS: DOCUSATE SODIUM 100 MG CAP PO SCH (08:29)
[2017-09-12] MEDS: SLOW FE PO SCH (08:29)
[2017-09-12] MEDS: CIPROFLOXACIN 500 MG TAB PO SCH ×2 (08:29→17:08)
[2017-09-12] MEDS: PANTOPRAZOLE SOD 40 MG TABEC PO SCH (08:30)
[2017-09-12] MEDS: FINASTERIDE 5 MG TAB PO SCH (08:30)
[2017-09-12] MEDS: MAGNESIUM OXIDE 400 MG TAB PO SCH ×2 (08:30→17:08)
[2017-09-12] MEDS: MELOXICAM 7.5 MG TAB PO SCH (08:30)
[2017-09-12] MEDS: ERTAPENEM 1GM/NS 100ML 100 ML IV SCH (14:00)
[2017-09-13 00:46] VITALS: BP 155/71
[2017-09-13 04:00] VITALS: BP 133/66
[2017-09-13 05:01] VITALS: BP 155/71
[2017-09-13] MEDS: TAMSULOSIN HCL 0.4 MG CAP PO SCH (08:30)
[2017-09-13 08:47] VITALS: BP 151/67
[2017-09-13] MEDS: SLOW FE PO SCH (09:00)
[2017-09-13 09:54] VITALS: BP 151/67
[2017-09-13] MEDS: MAGNESIUM OXIDE 400 MG TAB PO SCH (10:07)
[2017-09-13] MEDS: DOCUSATE SODIUM 100 MG CAP PO SCH (10:07)
[2017-09-13] MEDS: CIPROFLOXACIN 500 MG TAB PO SCH (10:07)
[2017-09-13] MEDS: MELOXICAM 7.5 MG TAB PO SCH (10:08)
[2017-09-13] MEDS: FINASTERIDE 5 MG TAB PO SCH (10:08)
[2017-09-13] MEDS: PANTOPRAZOLE SOD 40 MG TABEC PO SCH (10:08)
[2017-09-13] MEDS ORDERED: PROSCAR5 MG PO (10:30)
[2017-09-13] MEDS ORDERED: TAMSULOSIN HCL0.4 MG (10:31)
[2017-09-13] MEDS ORDERED: FLOMAX0.4 MG PO (10:31)
[2017-09-13] MEDS ORDERED: CIPRO500 MG PO (10:32)
[2017-09-13 12:00] VITALS: BP 132/61
[2017-09-13] MEDS: ERTAPENEM 1GM/NS 100ML 100 ML IV SCH (14:30)
--- NOTE | 2017-10-21 03:29 | Operative Report ---
DATE OF PROCEDURE: September 10, 2017 PREOPERATIVE DIAGNOSIS: Gross hematuria. POSTOPERATIVE DIAGNOSES 1. Gross hematuria. 2. Urethral stricture disease OPERATIONS PERFORMED 1. Cystourethroscopy with calibration and dilation of urethral stricture disease (separate procedure performed for the urethral stricture disease). 2. Cystourethroscopy with bilateral ureteral catheterization and retrograde ureteropyelography (separate procedure performed to evaluate the upper tracts in light of the gross hematuria). 3. Interpretation of retrograde ureteropyelography. ANESTHESIA: General. COMPLICATIONS: None. CLINICAL SUMMARY: Alli Mendoza Jr., is a 76-year-old man who was found to have gross hematuria. He also has an intra-abdominal intestinal process that is being managed with antibiotics. He is brought to the operating room to evaluate for any etiology for the gross hematuria. Further preparation is being carried out for placement of the patient on long-term intravenous antibiotics. Following this, we plan on following the patient as he undergoes his exploratory laparotomy and evaluation and management of the intra-abdominal pathology. Patient is aware of the risks of bleeding, infection, injury to adjacent structures, need for additional procedures, and elected to proceed. OPERATIVE PROCEDURE IN DETAIL: Informed consent was verified. Alli Mendoza Jr., was properly identified, taken to the operating room, placed on the cystoscopy table in supine position. Anesthesia was uneventfully begun. The patient was then carefully and gently re-positioned in dorsal lithotomy position with all pressure points well padded. His genitalia were prepared and draped in usual sterile fashion. The 22.5-[place] cystoscope sheath with a visual obturator in place was atraumatically inserted in patient's urethra. It was guided down the urethra which was significant for wide caliber urethral stricture disease. We gently dilated across these wide-caliber strictures. As we then approached and passed the normal sphincteric region, went through the prostate bed which was significant for trilobar prostatic hypertrophy with an intravesical median lobe and visually obstructing kissing lateral lobes. Panendoscopy of the urinary bladder revealed grade 1 to 2 trabeculations, but no tumors, no stones, and no suspicious lesions were identified. An 8-[place] catheter was used to cannulate each ureter and retrograde ureteropyelograms were performed. Interpretation of retrograde ureteropyelography: Contrast was instilled in retrograde fashion bilaterally. There were no tumors, no stones, no diverticula. Unobstructed drainage was observed bilaterally fluoroscopically. The patient has a known renal stone and this was not well visualized on these retrograde pyelograms. The patient's bladder was drained. A belladonna and opium suppository was placed revealing a 50-g prostate that is smooth, nonfluctuant without any nodules. The patient was uneventfully reversed from anesthesia and taken to the recovery room in stable condition. There were no complications of the procedure. He tolerated the procedure well. Plans will be to continue to follow the patient up on a long-term basis. We also plan on being available should bilateral ureteral stents need to be placed for the patient's future general surgery case. Ongoing urological followup is a must especially in light of the fact that we need to manage the patient's nephrolithiasis. Job#: [id number] NICOLAS
--- NOTE | 2017-10-23 02:33 | Discharge Summary ---
DISCHARGE DIAGNOSES: 1. Diverticular abscess. 2. Gross hematuria. 3. Right nephrolithiasis. 4. Leukocytosis. 5. Sepsis secondary to Escherichia coli. HISTORY OF PRESENT ILLNESS AND HOSPITAL COURSE: Please see hospital chart for full details since this discharge summary is not all encompassing. Patient is a gentleman who presented with abdominal pain, was felt to have colon cancer, but he had a colonoscopy performed about 8 months ago at an outside facility that was negative. So he did start becoming febrile with leukocytosis, found to have E. coli on the blood, so he was having sepsis secondary to possible diverticulum abscess, so he was seen by surgery where patient was able to make significant improvements with IV antibiotics that it was felt to go ahead and continue to use the IV antibiotics since he was symptomatically improving, and then once the antibiotics were complete, then go in there and surgically explore the area, so this way it minimized the chance of colostomy, which patient was very agreeable to. Dr. Bruno saw the patient for the gross hematuria. Please see his notes for full details. At the time of discharge, patient was discharged home with continued IV antibiotics under the care of Dr. So. Follow up with me in approximately couple of weeks and Dr. Miller in about 6 weeks for possible further surgical intervention. Please see hospital chart for full details. CATRACHO SANTILLAN MD Job#: [id number]
== END 2017-09-13 15:14 | disposition home health service (06) | DRG 872 ==
LOC: ER 15:41 → ERHOLD 18:23 → MED/SURG 09-05 11:08
PROVIDERS: ADMIT Internal Medicine; ATTEND Internal Medicine
PROC: 02HV33Z Insertion of Infusion Device into Superior Vena Cava, Percutaneous Approach (ICD-10-PCS; 2017-09-07)
PROC: 0T788ZZ Dilation of Bilateral Ureters, Via Natural or Artificial Opening Endoscopic (ICD-10-PCS; 2017-09-10)
PROC: BT141ZZ Fluoroscopy of Kidneys, Ureters and Bladder using Low Osmolar Contrast (ICD-10-PCS; 2017-09-10)
PROC: 0T7D8ZZ Dilation of Urethra, Via Natural or Artificial Opening Endoscopic (ICD-10-PCS; principal; 2017-09-10 10:00)
DX: A41.51 Sepsis due to Escherichia coli [E. coli] (principal); E87.1 Hypo-osmolality and hyponatremia; K57.80 Diverticulitis of intestine, part unspecified, with perforation and abscess without bleeding; E77.8 Other disorders of glycoprotein metabolism; N20.0 Calculus of kidney; D64.9 Anemia, unspecified; E86.0 Dehydration; I12.9 Hypertensive chronic kidney disease with stage 1 through stage 4 chronic kidney disease, or unspecified chronic kidney disease; K52.9 Noninfective gastroenteritis and colitis, unspecified; N18.2 Chronic kidney disease, stage 2 (mild); K21.9 Gastro-esophageal reflux disease without esophagitis; I73.9 Peripheral vascular disease, unspecified; R16.1 Splenomegaly, not elsewhere classified; N50.0 Atrophy of testis; N40.1 Benign prostatic hyperplasia with lower urinary tract symptoms; R39.15 Urgency of urination; N32.81 Overactive bladder; Z87.891 Personal history of nicotine dependence; E66.9 Obesity, unspecified; Z68.29 Body mass index [BMI] 29.0-29.9, adult; Z16.12 Extended spectrum beta lactamase (ESBL) resistance
CPT/HCPCS: 36415; 36569; 71045; 74018; 74176; 74420; 80053; 81001; 82378; 82550; 82553; 83605; 83690; 83735; 83880; 84100; 84443; 84484; 85025; 85610; 85730; 87040; 87071; 87086; 87186; 87205; 87400; 87493; 93005; 97139; 99284; J0692; J1100; J1650; J1956; J2001; J7030; J7050

== ENCOUNTER → 2017-10-08 | Outpatient (CLI) | payer MEDICARE, BC ==
[~2017-10-08] MED LIST: AREDS 2 PO; CIPRO500 MG PO; COLACE100 MG PO; DEXILANT60 MG PO; DIATRIZOATE MEGL/DIATRIZOA SOD 30 ML BTL PO ONE; FLOMAX0.4 MG PO; IOPAMIDOL 370 MG/ML 200 ML INFUS..BTL INJ ONE; IRON TABLET; MELOXICAM7.5 MG PO; PROSCAR5 MG PO; SLOW FE PO; SODIUM CHLORIDE 0.9% 50ML 50 ML ONE; TAMSULOSIN HCL0.4 MG; TAMSULOSIN HCL0.4 MG PO
[2017-10-08 11:09] LABS: BLOOD UREA NITROGEN 15 mg/dL (7-26); BUN/CREATININE RATIO 14 (6-25); CREATININE, SERUM 1.06 mg/dL (0.72-1.25); EST GLOMERULAR FILTRATION RATE > 60 ML/MIN (60-)
--- NOTE | 2017-10-08 13:06 | Diagnostic Imaging Report ---
PROCEDURE: CT ABDOMEN AND PELVIS WITH CONTRAST TECHNIQUE: The abdomen and pelvis were scanned utilizing a multidetector helical scanner from the diaphragm to the lesser trochanter after the IV administration of 100 cc of Isovue 370 and the oral administration of Gastroview. Coronal and sagittal multiplanar reformations were obtained. COMPARISON: Patients [facility], CT, CT ABDOMEN/PELVIS , 09/04/2017, 16:48. INDICATIONS: LOWER ABDOMINAL PAIN FINDINGS: LOWER THORAX: Lung bases are clear. HEPATOBILIARY: Normal hepatic size and contour. Indeterminate linear/tubular hypodense structure in hepatic segment VIII (series 2 image 16, and sagittal image 30) which was not clearly seen on the prior exam. There has been interval resolution of the previously visualized air-filled branching tubular structures in the right and left hepatic lobe. No other focal hepatic lesions. No biliary ductal dilatation. Gallbladder is unremarkable. SPLEEN: No splenomegaly. PANCREAS: No focal masses or ductal dilatation. ADRENALS: No adrenal nodules. KIDNEYS/URETERS: No hydronephrosis or solid mass lesions. Stable 4-5 mm nonobstructing calculus in the inferior pole of the right kidney (series 2 image 36). Stable 1.9 x 1.8 cm partially exophytic fluid density simple cyst in the mid to inferior left kidney (series 2, image 28. Stable 1.4 x 1.5 cm fluid density simple cyst in the lateral interpolar left kidney (series 2 image 33). PELVIC ORGANS/BLADDER: Bladder is unremarkable. Stable mild prostatic enlargement. Pelvic phleboliths. PERITONEUM / RETROPERITONEUM: No free air or fluid. LYMPH NODES: No lymphadenopathy. VESSELS: Celiac trunk, superior and inferior mesenteric, and bilateral renal arteries are patent. Portal, superior mesenteric, and splenic arteries are patent. Atherosclerotic calcification of the abdominal aorta and iliac vessels. GI TRACT: Sigmoid diverticulosis. Persistent focal eccentric bulging in the right lateral aspect of the mid sigmoid colon (series 2, image 73), with wall thickening, however, decreased in size since the prior exam, measuring approximately 4.7 x 4.4 cm (previously measured 5.8 x 4.4 cm). Persistent surrounding fat stranding and adhesion to a loop of ileum. There is an intraluminal hyperdense focus in the right lateral aspect of this structure (series 2 image 74) No evidence of bowel obstruction. Moderate to large amount of retained stool in the colon. Stomach is unremarkable. BONES AND SOFT TISSUES: Nonaggressive lytic lesion. Degenerative changes in the lumbosacral spine, worse at L5-S1. Stable left fat-containing inguinal hernia. IMPRESSION: 1. Findings in the sigmoid colon still suspicious for sigmoid neoplasm such as adenocarcinoma. A diverticular phlegmon in a focus of prior diverticulitis also a consideration. Direct visualization with endoscopy is recommended for further evaluation. 2. Intraluminal hyperdense focus in the right lateral aspect of the above-described sigmoid focal bulge is indeterminate. This may represent retained oral contrast in a diverticulum from a prior study, however, given the adhesions to the adjacent contrast-filled ileal loop, a small fistulous connection is also considered. 3. No evidence of contained or free intraperitoneal air. 4. A linear/tubular hypodense structure in hepatic segment VIII is indeterminate. This may represent a focally dilated bile duct. A distal/peripheral portal vein branch thrombosis. Also considered. No other filling defects are noted in the portal circulation. Sung Gay M.D. Dictated by: Sung Gay M.D. on 10/08/2017 at 12:30 Electronically approved by: Sung Gay M.D. on 10/08/2017 at 13:07
== END ==
LOC: CT 10:22
PROVIDERS: ATTEND Internal Medicine Gastroenterology
DX: R10.30 Lower abdominal pain, unspecified (principal); Z87.19 Personal history of other diseases of the digestive system
CPT/HCPCS: 36415; 74177; 82565; 84520; Q9967

== ENCOUNTER → 2017-10-22 | Outpatient (CLI) | payer MEDICARE, BC ==
[~2017-10-22] MED LIST changes: -DIATRIZOATE MEGL/DIATRIZOA SOD 30 ML BTL PO ONE; -IOPAMIDOL 370 MG/ML 200 ML INFUS..BTL INJ ONE; -SODIUM CHLORIDE 0.9% 50ML 50 ML ONE
--- NOTE | 2017-10-22 09:35 | Diagnostic Imaging Report ---
PROCEDURE: X-RAY BARIUM ENEMA WITH AIR CONTRAST COMPARISON: CT abdomen and pelvis 10/08/2017. INDICATIONS: DIVERTICULITIS TECHNIQUE: Cut Off Worker film was obtained. Barium was introduced via a rectal tube in a retrograde fashion until contrast was noted to reach the cecum. Air was then introduced to fully inflate the colon. Multiple spot images as well as overhead and bilateral decubitus images were obtained. FINDINGS: The sports betting manager film demonstrates no acute abnormalities. There is no evidence of obstruction, mass, or intraluminal filling defects. No appendix is visualized. Multiple diverticuli are present in the descending and sigmoid colon. No extravasation of contrast. CONCLUSION: No acute abnormality of the abdomen and pelvis. Diverticulosis of the distal descending and sigmoid colon. Dictated by: Charlie Lara M.D. on 10/22/2017 at 9:37 Electronically approved by: Charlie Lara M.D. on 10/22/2017 at 9:37
== END ==
LOC: DX 07:21
PROVIDERS: ATTEND Surgery
DX: K57.30 Diverticulosis of large intestine without perforation or abscess without bleeding (principal)
CPT/HCPCS: 74280

== ENCOUNTER 2017-11-06 13:38 | Emergency (ER) | payer MEDICARE, BC ==
[~2017-11-06] VITALS: Ht 185.4 cm; Wt 102.1 kg
--- OUTSIDE RECORDS SUMMARY | 2017-11-06 13:41 | XMS REPORT | Clinical Summary ---
Author Author [facility] Address Unknown Phone Unavailable Care Team Providers Care [employer] And Silverware Salesperson Name Role Phone PCP Unavailable Allergies No Known Allergies Current Medications Prescription Sig. Disp. Refills Start End Date Status Date meloxicam (MOBIC) 7.5 MG Take 7.5 mg by mouth Active tablet daily. dexlansoprazole 60 mg Take 60 mg by mouth Active capsule daily. tamsulosin (FLOMAX) 0.4 Take 0.4 mg by mouth Active mg Cp24 24 hr capsule daily. brimonidine-timolol 1 drop 2 (two) times Active (COMBIGAN) 0.2-0.5 % daily. ophthalmic solution difluprednate (DUREZOL) Apply to eye(s). Active 0.05 % Drop moxifloxacin (VIGAMOX) 1 drop 3 (three) times Active 0.5 % ophthalmic solution daily. Active Problems Problem Noted Date Primary open angle glaucoma of both eyes, severe stage 03/26/2016 Social History Tobacco Use Types Packs/Day Years Used Date Never Smoker Alcohol Use Drinks/Week oz/Week Comments No Sex Assigned at Date Recorded Not on file Last Filed Vital Signs Not on file Plan of Treatment Not on file Implants Implanted Type Area Special Education Director Device Expiration Model / Identifier Date Serial / Lot Valve Glaucoma Ahmed Flx Plt Fp-7 Ophthalmol Left: Eye [employer] 01/05/2018 FP-7 / - [id number] / Implanted: Qty: 1 on 03/30/2016 by [id number] Glenn Ngo MD Halo Cornea Half/Half Thickness Left: Eye [employer] 07/29/2016 HALO HALF Implanted: Qty: 1 on 03/30/2016 by [id number] / Glenn Ngo MD [id number] / N/A Results Not on fileafter 11/05/2016
--- OUTSIDE RECORDS SUMMARY | 2017-11-06 13:41 | XMS REPORT | Clinical Summary ---
Author Author [facility] Address Unknown Phone Unavailable Care Team Providers Care Research Electrician Name Role Phone Trip Mcgee MD PCP Unavailable Allergies Not on File Current Medications Not on file Active Problems Not on file Encounters Date Type Specialty Care Team Description 02/02/2017 Hospital Radiology Dinah Santoro MD Calculus, renal Encounter 02/02/2017 Transcribe Access Dinah Santoro MD Calculus, renal ( Primary Orders Dx) after 11/05/2016 Social History Tobacco Use Types Packs/Day Years Used Date Never Assessed Sex Assigned at Date Recorded Not on file Last Filed Vital Signs Not on file Plan of Treatment Health Maintenance Due Date Last Done Comments COLON CANCER SCREENING 1992 SHINGRIX VACCINE (#1) 1992 ZOSTER VACCINE 2002 PNEUMOCOCCAL 10/20/2007 POLYSACCHARIDE VACCINE AGE 65 AND OVER PNEUMOCOCCAL-13 10/20/2007 INFLUENZA VACCINE 01/19/2018 Results * XR Kub Kidney Ureter Bladder (02/02/2017 4:40 PM) Specimen Performing Laboratory [facility] [address] [place] [address] Narrative EXAMINATION:XR KUB KIDNEY URETER BLADDER CLINICAL [...] intact. The bowel gas pattern is normal. [id number] Procedure Note Interface, Radiology Results Incoming - [...] intact. The bowel gas pattern is normal. [id number] after 11/05/2016 Insurance Payer Benefit Subscriber ID Type Phone Address Plan / Group MEDICARE MEDICARE xxxxxxxxxx Medicare [place], [place] PART A AND B BCBS BCBS xxxxxxxxxxxx Indemnity PAR/TRAD PLAN
--- OUTSIDE RECORDS SUMMARY | 2017-11-06 13:41 | XMS REPORT | Continuity of Care Document ---
Author Author [facility] Organization [facility] Address [address] [place] [address] Phone Unavailable Care Team Providers Care Geropsychologist Name Role Phone CATRACHO SANTILLAN MD PCP Insurance Providers Guarantor Lizzie Kendall Jr Address [address] [place] [address] Email [facility] Policy Number [id number] Subscriber's Name Lizzie Kendall Jr Relationship 18 Self / Same As Patient Group Number [id number] Effective Date 12 Payer Medicare A & B Policy Number [id number] Subscriber's Name Lizzie Kendall Jr Relationship 18 Self / Same As Patient Effective Date 11 Advance Directives Directive Response Recorded Date/Time Does the patient have an advance directive? No 09/05/17 12:22pm If yes, is advance directive on file with [facility]? No 09/05/17 12:22pm If not on file with [facility] will patient provide a copy? No 09/05/17 12:22pm Do you have a Directive to Physician? No 09/04/17 6:13pm Do you have a Medical Power of Plant Tender? No 09/04/17 6:13pm Do you have an out of hospital Do Not Resuscitate Order? No 09/04/17 6:13pm Do you have any special needs we should be aware of? No 09/04/17 6:13pm Do you have a support person here with you today? Yes 09/04/17 6:13pm Did patient receive Notice of Privacy Practices? Yes 09/04/17 6:13pm Did patient receive patient rights and responsibilities? Yes 09/04/17 6:13pm Problems Medical Problem Onset Date Status Colitis Unknown Colon adenocarcinoma Unknown Dysuria Unknown Fever Unknown Hypomagnesemia Unknown Weakness Unknown Medications Current Home Medications Medication Dose Units Route Directions Days Qty Instructions Start Date Areds 2 120 Mg Oral Daily Ciprofloxacin Hcl (Cipro) 500 Mg Tablet 500 Mg Oral Every 12 Hours 42 Tab Dexlansoprazole (Dexilant) 60 Mg Cap.mp 60 Mg Oral Daily THERAPEUTIC INTERCHANGE WITH PROTONIX PER [facility] Docusate Sodium (Colace) 100 Mg Cap 100 Mg Oral Daily 30 Cap Finasteride (Proscar) 5 Mg Tablet 5 Mg Oral Daily Meloxicam 7.5 Mg Tablet 15 Mg Oral Daily 30 Tab Slow Fe 1 Tab Oral Daily Tamsulosin Hcl (Flomax*) 0.4 Mg Cap 0.4 Mg Oral Twice A Day 30 Cap Past Home Medications Medication Directions Ordered Status Iron Tablet , Discontinued Tamsulosin Hcl 0.4 Mg Cap.er.24h, 0.4 Mg Oral Daily Discontinued Tamsulosin Hcl 0.4 Mg Cap.er.24h, Discontinued Social History Social History Problem Response Recorded Date/Time Onset Date Status Hx Psychiatric Problems No 09/05/2017 12:22pm Not Applicable Not Applicable Hx Eating Disorder No 09/05/2017 12:22pm Not Applicable Not Applicable Hx Substance Use Disorder No 09/05/2017 12:22pm Not Applicable Not Applicable Hx Depression No 09/05/2017 12:22pm Not Applicable Not Applicable Hx Alcohol Use No 09/05/2017 12:22pm Not Applicable Not Applicable Hx Substance Use Treatment No 09/05/2017 12:22pm Not Applicable Not Applicable Hx Physical Abuse No 09/05/2017 12:22pm Not Applicable Not Applicable Smoking Status Start Date Stop Date Never Smoker Hospital Discharge Instructions No hospital discharge instruction information available. Plan of Care Discharge Date 09/13/17 3:14pm Disposition HOME, SELF-CARE Instructions/Education Provided Cystoscopy Infection Control Prescriptions See Medication Section Additional Instructions/Education REGULAR DIET ACTIVITY TOLERATED CONTACTS FOR FOLLOW UP APPOINTMENTS/QUESTIONS DR. Colin CAI: [phone] DR. ABAD: [phone] DR. BOYD: [phone] Functional Status Query Response Date Recorded Assistive Devices None September 05, 2017 12:11pm Ambulation Ability Independent September 05, 2017 12:11pm Toileting Ability Independent September 13, 2017 2:27pm Allergies, Adverse Reactions, Alerts No known allergies. Immunizations No immunization information available. Vital Signs Acute Vital Signs Vital Response Date/Time Temperature (Fahrenheit) 97.6 degrees F (97.6 - 99.5) 09/13/2017 12:00pm Pulse Pulse Rate (adult) 93 bpm (60 - 90) 09/13/2017 12:00pm Respiratory Rate 21 bpm (12 - 24) 09/13/2017 12:00pm Blood Pressure 132/61 mm Hg 09/13/2017 12:00pm Height 6 ft 1 in 09/04/2017 3:44pm Weight 225.44 lb 09/10/2017 8:21am Body Mass Index 29.7 kg/m^2 09/10/2017 8:21am Results Laboratory Results Test Name Result Units Flags Reference Collection Date/Time Result Date/ Time Comments White Blood Count 10.52 x10e3/uL 4.8-10.8 09/12/2017 5:19am 09/12/2017 5:40am Red Blood Count 4.50 x10e6/uL 4.3-5.7 09/12/2017 5:19am 09/12/2017 5: 40am Hemoglobin 11.7 g/dL L 14.0-18.0 09/12/2017 5:19am 09/12/2017 5:40am Hematocrit 35.8 % L 38.2-49.6 09/12/2017 5:19am 09/12/2017 5:40am Mean Corpuscular Volume 79.6 fL L 81-99 09/12/2017 5:19am 09/12/2017 5: 40am Mean Corpuscular Hemoglobin 26.0 pg L 28-32 09/12/2017 5:2017 5:40am Mean Corpuscular Hemoglobin Concent 32.7 g/dL 31-35 09/12/2017 5:09/12/2017 5:40am Red Cell Distribution Width 16.2 % H 11.7-14.4 09/12/2017 5:19am 2017 5:40am Platelet Count 269 x10e3/uL 140-360 09/12/2017 5:09/12/2017 5: 40am Neutrophils (%) (Auto) 69.1 % 38.7-80.0 09/12/2017 5:09/12/2017 5: 40am Lymphocytes (%) (Auto) 19.0 % 18.0-39.1 09/12/2017 5:09/12/2017 5: 40am Monocytes (%) (Auto) 7.9 % 4.4-11.3 09/12/2017 5:09/12/2017 5: 40am Eosinophils (%) (Auto) 2.8 % 0.0-6.0 09/12/2017 5:am 09/12/2017 5: 40am Basophils (%) (Auto) 0.4 % 0.0-1.0 09/12/2017 5:09/12/2017 5:40am IM GRANULOCYTES % 0.8 % 0.0-1.0 09/12/2017 5:09/12/2017 5:40am Neutrophils # (Auto) 7.3 H 2.1-6.9 09/12/2017 5:09/12/2017 5: 40am Lymphocytes # (Auto) 2.0 1.0-3.2 09/12/2017 5:09/12/2017 5:40am Monocytes # (Auto) 0.8 0.2-0.8 09/12/2017 5:am 09/12/2017 5:40am Eosinophils # (Auto) 0.3 0.0-0.4 09/12/2017 5:am 09/12/2017 5:40am Basophils # (Auto) 0.0 0.0-0.1 09/12/2017 5:09/12/2017 5:40am Absolute Immature Granulocyte (auto 0.08 x10e3/uL 0-0.1 09/12/2017 5: 19am 09/12/2017 5:40am Differential Total Cells Counted 100 09/06/2017 6:40am 09/06/2017 8 :02am Neutrophils % (Manual) 90 % H 40-74 09/06/2017 6:40am 09/06/2017 8:02am Band Neutrophils % 1 % 09/06/2017 6:40am 09/06/2017 8:02am Lymphocytes % (Manual) 3 % L 19-48 09/06/2017 6:40am 09/06/2017 8:02am Monocytes % (Manual) 6 % 3.4-9.0 09/06/2017 6:40am 09/06/2017 8:02am Eosinophils % (Manual) 1 % 0-7 09/05/2017 12:05pm 09/05/2017 2:14pm Platelet Estimate ADEQUATE 09/06/2017 6:40am 09/06/2017 8:02am Platelet Morphology Comment NORMAL 09/06/2017 6:40am 09/06/2017 8: 02am Red Cell Morphology Comment NORMAL 09/06/2017 6:40am 09/06/2017 8: 02am Prothrombin Time 14.8 seconds H 11.9-14.5 09/04/2017 3:55pm 09/04/2017 4 :45pm Prothromb Time International Ratio 1.25 09/04/2017 3:55pm 2017 4:45pm Oral Anticoagulant Therapy INR Values: 1. Low Intensity Therapy 1.5 - 2.0 2. Moderate Intensity Therapy 2.0 - 3.0 3. High Intensity Therapy(1) 2.5 - 3.5 4. High Intensity Therapy(2) 3.0 - 4.0 5. Panic Value INR > 5.0 Activated Partial Thromboplast Time 24.4 seconds 23.8-35.5 09/04/2017 3: 55pm 09/04/2017 4:45pm Urine Color MALENA H YELLOW 09/04/2017 3:55pm 09/04/2017 4:55pm Urine Clarity HAZY CLEAR 09/04/2017 3:55pm 09/04/2017 4:55pm Urine Specific Fulda 1.020 1.010-1.025 09/04/2017 3:55pm 2017 4:55pm Urine pH 5 5 - 7 09/04/2017 3:55pm 09/04/2017 4:55pm Urine Leukocyte Esterase TRACE H NEGATIVE 09/04/2017 3:55pm 2017 4:55pm Urine Nitrite NEGATIVE NEGATIVE 09/04/2017 3:55pm 09/04/2017 4:55pm Urine Protein 1+ H NEGATIVE 09/04/2017 3:55pm 09/04/2017 4:55pm Urine Glucose (UA) NEGATIVE NEGATIVE 09/04/2017 3:55pm 09/04/2017 4: 55pm Urine Ketones TRACE H NEGATIVE 09/04/2017 3:55pm 09/04/2017 4:55pm Urine Urobilinogen 4 mg/dL H 0.2 - 1 09/04/2017 3:55pm 09/04/2017 4: 55pm Urine Bilirubin 1+ H NEGATIVE 09/04/2017 3:55pm 09/04/2017 4:55pm Confirmatory test currently unavailable. False positive results may occur. Urine Blood TRACE H NEGATIVE 09/04/2017 3:55pm 09/04/2017 4:55pm Urine WBC 6-10 /HPF H 0-5 09/04/2017 3:55pm 09/04/2017 5:06pm Urine RBC 0-5 /HPF 0-5 09/04/2017 3:55pm 09/04/2017 5:06pm Urine Bacteria FEW /HPF NONE 09/04/2017 3:55pm 09/04/2017 5:06pm Urine Epithelial Cells FEW /LPF NONE 09/04/2017 3:55pm 09/04/2017 5: 06pm Sodium Level 137 mmol/L 136-145 09/10/2017 5:50am 09/10/2017 6:41am Potassium Level 3.6 mmol/L 3.5-5.1 09/10/2017 5:50am 09/10/2017 6:41am Chloride Level 105 mmol/L 98-107 09/10/2017 5:50am 09/10/2017 6:41am Influenza Virus Types A,B Antigen NEGATIVE NEGATIVE 09/04/2017 6:49pm 09/04/2017 8:20pm Carbon Dioxide Level 25 mmol/L 09/10/2017 5:50am 09/10/2017 6: 41am Anion Gap 10.6 mmol/L 8-09/10/2017 5:50am 09/10/2017 6:41am Blood Urea Nitrogen 12 mg/dL 7-26 09/10/2017 5:50am 09/10/2017 6:41am Creatinine 0.81 mg/dL 0.72-1.25 09/10/2017 5:50am 09/10/2017 6:41am BUN/Creatinine Ratio 15 6-25 09/10/2017 5:50am 09/10/2017 6:41am Estimat Glomerular Filtration Rate > 60 ML/MIN 60- 09/10/2017 5:50am 6:41am Ranges were taken from the National Kidney Disease Education Program and the National Kid[employer] literature. Reference ranges: 60 or greater: Normal 16-59 (for 3 consecutive months): Chronic kidney disease 15 or less: Kidney failure Glucose Level 92 mg/dL 74-118 09/10/2017 5:50am 09/10/2017 6:41am Calcium Level 8.4 mg/dL 8.4-10.2 09/10/2017 5:50am 09/10/2017 6:41am Lactic Acid Level 28.9 MG/DL H 4.5-19.8 09/04/2017 4:01pm 09/04/2017 4: 53pm Phosphorus Level 2.0 MG/DL L 2.3-4.7 09/05/2017 12:05pm 09/05/2017 1: 11pm Magnesium Level 1.5 MG/DL 1.3-2.1 09/08/2017 7:00am 09/08/2017 8:16am Total Bilirubin 0.7 mg/dL 0.2-1.2 09/10/2017 5:50am 09/10/2017 6:41am Aspartate Amino Transf (AST/SGOT) 26 IU/L 5-34 09/10/2017 5:50am 2017 6:41am Alanine Aminotransferase (ALT/SGPT) 27 IU/L 0-55 09/10/2017 5:50am 6:41am Total Protein 6.3 g/dL L 6.5-8.1 09/10/2017 5:50am 09/10/2017 6:41am Albumin 2.7 g/dL L 3.5-5.0 09/10/2017 5:50am 09/10/2017 6:41am Globulin 3.6 g/dL H 2.3-3.5 09/10/2017 5:50am 09/10/2017 6:41am Albumin/Globulin Ratio 0.8 0.8-2.0 09/10/2017 5:50am 09/10/2017 6: 41am Alkaline Phosphatase 92 IU/L 40-150 09/10/2017 5:50am 09/10/2017 6: 41am B-Type Natriuretic Peptide 99.2 pg/mL 0-100 09/04/2017 4:01pm 2017 4:54pm Creatine Kinase 798 IU/L H 30-200 09/05/2017 12:05pm 09/05/2017 2:50pm Creatine Kinase MB 4.40 ng/mL 0-5.0 09/05/2017 12:05pm 09/05/2017 2: 50pm Troponin I 0.021 ng/mL 0-0.300 09/05/2017 12:05pm 09/05/2017 2:50pm Lipase 11 U/L 8-78 09/04/2017 3:55pm 09/04/2017 4:52pm Thyroid Stimulating Hormone (TSH) 1.707 uIU/mL 0.350-4.940 09/04/2017 3: 55pm 09/04/2017 5:14pm Carcinoembryonic Antigen 2.3 ng/mL 0.0-4.7 09/07/2017 7:10am 2017 5:46am Penny ECLIA methodology Nonsmokers <3.9 Smokers <5.6 Performed at: [address] [id number] [employer] [facility] Chief: Shawn Marshall MD, Phone: [phone] Clostridium Difficile Toxin A & B NEGATIVE NEGATIVE 09/11/2017 7:35pm 09/12/2017 2:36pm Testing on stool aspirate specimens is outside it applications manager claims since specimen type not validated on this assay. Microbiology Results Procedure Source Organism/Result Collection Date/Time Result Date/Time Result Status Blood Culture Blood Growth detected. Culture workup ordered. 09/04/2017 3: 55pm 09/05/2017 11:03am Final Blood Culture Blood ESCHERICHIA COLI 09/04/2017 3:55pm 09/07/2017 7:47am Final Procedures Procedure Status Date Provider(s) Cystoscopy with retrograde pyelography Completed 09/10/[address] of abdomen and pelvis without contrast Active 09/04/17 KERI CAMARILLO Encounters Encounter Location Arrival/Admit Date Discharge/Depart Date Attending Provider Discharged Inpatient [facility] 09/04/17 6:23pm 09/13/17 3:14pm CATRACHO SANTILLAN MD
--- NOTE | 2017-11-06 15:03 | Diagnostic Imaging Report ---
Exam: Sacrum, 3 views History: Status post fall, back pain today Comparison: CT abdomen and pelvis 10/08/2017 Findings: AP views are limited by retained contrast in colonic diverticula, which obscure the sacrum. There is normal bone mineralization. No acute, displaced fracture or dislocation. Visualized sacral arches are unremarkable. Sacroiliac joints are grossly unremarkable. Degenerative disc changes at L5-S1, as well as facet hypertrophy. Visualized vertebral bodies are preserved. Impression: 1. No acute, displaced fracture or dislocation, within the limitations of the study. Signed by: Dr. Sung Gay M.D. on 11/06/2017 3:00 PM
--- NOTE | 2017-11-06 15:06 | Diagnostic Imaging Report ---
EXAMINATION: Lumbar spine series. CLINICAL HISTORY: Status post fall COMPARISON: CT abdomen and pelvis 10/08/2017 DISCUSSION: 5 views of the lumbar spine are submitted for interpretation. Five nonrib-bearing lumbar type vertebral bodies are identified. No acute, displaced fractures or dislocation. Vertebral bodies are well aligned. Bilateral oblique views show no spondylolysis. Multilevel degenerative disc changes in the lumbar spine, worse at L5-S1 with moderate intervertebral disc space narrowing. Facet hypertrophy worse at L5-S1. Vertebral body heights are preserved. Sacroiliac joints are unremarkable. Retained contrast likely in sigmoid diverticula in the mid pelvis Atherosclerotic calcification of the abdominal aorta. IMPRESSION: 1. No acute abnormalities. 2. Multilevel degenerative disc changes in the lumbosacral spine The staff physician below has personally reviewed this exam on the date of dictation. Signed by: Dr. Sung Gay M.D. on 11/06/2017 3:03 PM
[2017-11-06 15:54] VITALS: BP 121/87
== END 2017-11-06 15:57 | disposition home or self-care (01) ==
LOC: ER 13:38
CPT/HCPCS: 72110; 72220; 99283

== ENCOUNTER 2017-12-03 07:30 | Inpatient (IN) | payer MEDICARE, BC ==
[2017-12-01 09:11] LABS: BASOPHILS % 0.4 % (0.0-1.0); EOSINOPHILS # (AUTO) 0.6 (0.0-0.4); EOSINOPHILS % 7.2 % (0.0-6.0); HEMOGLOBIN 13.4 g/dL (14.0-18.0); LYMPHOCYTES # (AUTO) 1.3 (1.0-3.2); LYMPHOCYTES % 15.7 % (18.0-39.1); MEAN CORPUSCULAR HEMOGLOBIN 25.5 pg (28-32); MEAN CORPUSCULAR HGB CONC 31.9 g/dL (31-35); MONOCYTES # (AUTO) 0.6 (0.2-0.8); MONOCYTES % 7.3 % (4.4-11.3); NEUTROPHILS # (AUTO) 5.6 (2.1-6.9); NEUTROPHILS % 69.2 % (38.7-80.0); PLATELET COUNT 302 x10e3/uL (140-360); RED BLOOD COUNT 5.25 x10e6/uL (4.3-5.7); RED CELL DISTRIBUTION WIDTH 15.4 % (11.7-14.4)
--- NOTE | 2017-12-01 09:14 | Diagnostic Imaging Report ---
PROCEDURE:CHEST 2 VIEWS TECHNIQUE:PA and lateral chest INDICATION:Preoperative evaluation for laparotomy COMPARISON:None. FINDINGS: Cardiomegaly with lower lobe predominant vascular congestion. Upper lung zones are clear. Trace pleural effusions. Intact skeleton. CONCLUSION: Cardiomegaly with central vascular congestion and trace pleural effusions. Dictated by: Flex Huitron M.D. on 12/01/2017 at 9:17 Electronically approved by: Flex Huitron M.D. on 12/01/2017 at 9:17
[2017-12-01 09:25] LABS: CALCIUM 9.3 mg/dL (8.4-10.2); CREATININE, SERUM 1.2 mg/dL (0.72-1.25)
[2017-12-03] VITALS (34 sets, daily range): BP systolic 121–153; BP diastolic 60–111
[~2017-12-03] VITALS: Ht 185.4 cm; Wt 101.6 kg
[~2017-12-03 07:30] MED LIST changes: +IOPAMIDOL 610MG/1ML 300 MG/ML VIAL IV ONE
[2017-12-03] MEDS ORDERED: ACETAMINOPHEN 1000 MG/100 ML IV PRN (12:45)
[2017-12-03] MEDS ORDERED: ONDANSETRON HCL INJ 2 MG/ML VIAL ONE (12:50)
[2017-12-03] MEDS ORDERED: DEXAMETHASONE SOD PHOS INJ 4 MG/ML VIAL ONE (12:50)
[2017-12-03] MEDS ORDERED: NEOSTIGMINE 5 MG/5ML SYR ONE (12:50)
[2017-12-03] MEDS ORDERED: CEFOXITIN SOD 1 GM VIAL ONE (12:50)
[2017-12-03] MEDS ORDERED: LIDOCAINE HCL 2% LOCAL INJ 5 ML SDV VIAL INJ ONE (12:50)
[2017-12-03] MEDS ORDERED: PROPOFOL IV EMULSION 10 MG/ML 20 ML VIAL ONE (12:50)
[2017-12-03] MEDS ORDERED: EPHEDRINE SULFATE INJ 50 MG/10 ML SYR ONE (12:50)
[2017-12-03] MEDS ORDERED: ROCURONIUM BROMIDE 10 MG/ML 5ML VIAL ONE (12:50)
[2017-12-03] MEDS ORDERED: GLYCOPYRROLATE INJ 1MG/ 5 ML SYR ONE (12:50)
[2017-12-03] MEDS ORDERED: SEVOFLURANE INHAL SOLN 250 ML PEN BTL ONE (12:50)
[2017-12-03] MEDS ORDERED: FENTANYL CITRATE/PF 100MCG/2 ML INJ ONE (13:09)
[2017-12-03] MEDS ORDERED: MIDAZOLAM HCL 2 MG/2 ML VIAL ONE (13:09)
--- NOTE | 2017-12-03 14:05 | Operative Report ---
DATE OF PROCEDURE: December 03, 2017 PREOPERATIVE DIAGNOSIS: Complex diverticulitis. POSTOPERATIVE DIAGNOSIS: Complex diverticulitis with coloileal fistula. OPERATION PERFORMED: Exploratory laparotomy, low anterior colon resection and small-bowel resection. ANESTHESIA: General. COMPLICATIONS: None. ESTIMATED BLOOD LOSS: 300 mL. DESCRIPTION OF PROCEDURE: With the patient lying in bed in the supine position under good general endotracheal anesthesia, after Dr. Bruno had completed doing a cystoscopy and placement of stents, the abdomen was prepped with Betadine solution and draped in the usual manner. A low midline incision was made. It was carried down through the subcutaneous tissue and through the midline fascia. The peritoneum was opened, and the abdomen was entered. Upon entering the abdominal cavity, exploration revealed a mass in the pelvis where the colon, terminal ileum and the bladder were all plastered together in an inflammatory mass. This obviously had been going on for a significant period of time because there was a very, very hard mass present. The rest of the abdominal exploration did not show any other abnormalities. We decided at this point to mobilize the left colon off the lateral gutter, and this was done, bringing down the splenic flexure without any difficulty. The colon appeared to be normal at the level of the descending colon, and it was divided at this point with an application of DEMETRI-75 stapler. The ureters on the right and left were preserved during the entire dissection. The mesentery of the colon was then slowly taken down towards the pelvis using the Enseal device. However, down in the pelvis, the small bowel could not be whatsoever from the colon. Slowly and carefully, we managed to cut the bowel off of the bladder without entering the bladder. This was a rather hard adhesion that obviously has been going on for a long period of time. The patient probably has had a previous abscess, which was a walled-off by the bladder, the small bowel and the colon creating a fistula from the small bowel and the colon. The segment of small bowel that was tightly adherent to the colon was then resected en bloc with the colon by dividing the small bowel proximally and distally with a 75 DEMETRI, and the mesentery was divided with the Enseal device. Once this was done, we then managed to totally separate the bladder from the small bowel and the colon. In doing so, the colon was entered anteriorly, but we managed to get the colon and small bowel totally off of the bladder without entering the bladder. The rectum was then freed up posteriorly and laterally and was brought up. It was then divided between clamps, and the specimen was sent for pathological examination. Frozen section came back as benign. The descending colon was then brought down to the upper rectum, and a posterior row was performed with interrupted sutures of 3-0 silk. The staple line and clamp were then removed, and an internal row was created with 3-0 Vicryl. Gloves and instruments were changed. The anastomosis was completed with interrupted sutures of 3-0 silk anteriorly. The abdomen was copiously irrigated. Perfect hemostasis was ascertained. Small-bowel anastomosis was then performed with another application of the DEMETRI-75 stapler, bringing the terminal ileum together. This was just proximal to the ileocecal valve. The remaining opening was closed with a TA-60 stapler. The anastomosis was reinforced with 3-0 silk, and the mesentery was closed with a running suture of 2-0 Vicryl. The abdomen was then copiously irrigated. Perfect hemostasis was ascertained. The abdomen was inspected, and there was no bleeding. A 10 flat Aaron-Bee was brought out through a separate stab wound incision in the left lower quadrant and left in the retrorectal space. The abdomen was then closed in layers. The peritoneum was closed with a running suture of #1 Vicryl. The midline fascia was closed with a running suture of #1 Vicryl, and the skin was closed with clips. Dressing was applied. The sponge, lap and needle count was correct. Patient tolerated the procedure well and returned to the recovery room in stable condition. Job#: [id number]
[2017-12-03] MEDS: SODIUM CHLORIDE 0.9% 1000ML 1,000 ML IV SCH ×2 (14:53→20:46)
[2017-12-03] MEDS: PIPER-TAZ 3.375 GM 50 ML IV SCH ×2 (14:54→20:46)
[2017-12-03] MEDS: HYDROMORPHONE 1MG/1ML INJ IV PRN ×3 (14:54→22:57)
[2017-12-03] MEDS: SODIUM CHLORIDE 0.9% 250ML IRRIG IR SCH ×3 (14:54→20:46)
[2017-12-03] MEDS: PANTOPRAZOLE 40 MG 10ML VIAL IV SCH (14:54)
[2017-12-04] VITALS (32 sets, daily range): BP systolic 119–156; BP diastolic 71–87
[2017-12-04] MEDS: SODIUM CHLORIDE 0.9% 250ML IRRIG IR SCH ×6 (01:00→20:40)
[2017-12-04] MEDS: HYDROMORPHONE 1MG/1ML INJ IV PRN ×6 (02:10→20:40)
[2017-12-04] MEDS: PIPER-TAZ 3.375 GM 50 ML IV SCH ×4 (02:10→20:40)
[2017-12-04 05:28] LABS: BASOPHILS % 0.1 % (0.0-1.0); HEMATOCRIT 37.9 % (38.2-49.6); HEMOGLOBIN 12.4 g/dL (14.0-18.0); LYMPHOCYTES # (AUTO) 0.9 (1.0-3.2); LYMPHOCYTES % 4.1 % (18.0-39.1); MEAN CORPUSCULAR HEMOGLOBIN 26.2 pg (28-32); MEAN CORPUSCULAR HGB CONC 32.7 g/dL (31-35); MONOCYTES # (AUTO) 1.3 (0.2-0.8); MONOCYTES % 5.5 % (4.4-11.3); NEUTROPHILS # (AUTO) 20.7 (2.1-6.9); NEUTROPHILS % 89.8 % (38.7-80.0); PLATELET COUNT 306 x10e3/uL (140-360); RED BLOOD COUNT 4.74 x10e6/uL (4.3-5.7); RED CELL DISTRIBUTION WIDTH 15.5 % (11.7-14.4)
[2017-12-04 05:47] LABS: ANION GAP 12.6 mmol/L (8-16); BLOOD UREA NITROGEN 17 mg/dL (7-26); BUN/CREATININE RATIO 18 (6-25); CALCIUM 8.4 mg/dL (8.4-10.2); CARBON DIOXIDE 22 mmol/L (22-29); CHLORIDE 109 mmol/L (98-107); CREATININE, SERUM 0.94 mg/dL (0.72-1.25); EST GLOMERULAR FILTRATION RATE > 60 ML/MIN (60-); GLUCOSE 125 mg/dL (74-118); POTASSIUM 4.6 mmol/L (3.5-5.1); SODIUM 139 mmol/L (136-145)
[2017-12-04] MEDS: SODIUM CHLORIDE 0.9% 1000ML 1,000 ML IV SCH ×2 (06:40→18:24)
[2017-12-04] MEDS: PANTOPRAZOLE 40 MG 10ML VIAL IV SCH (08:51)
[2017-12-05] VITALS (8 sets, daily range): BP systolic 140–165; BP diastolic 73–88
[2017-12-05] MEDS: SODIUM CHLORIDE 0.9% 250ML IRRIG IR SCH ×6 (02:35→21:47)
[2017-12-05] MEDS: HYDROMORPHONE 1MG/1ML INJ IV PRN ×5 (02:35→22:29)
[2017-12-05] MEDS: PIPER-TAZ 3.375 GM 50 ML IV SCH ×4 (02:35→20:16)
[2017-12-05] MEDS: SODIUM CHLORIDE 0.9% 1000ML 1,000 ML IV SCH ×2 (05:51→14:10)
[2017-12-05 06:27] LABS: BASOPHILS % 0.2 % (0.0-1.0); EOSINOPHILS # (AUTO) 0.1 (0.0-0.4); EOSINOPHILS % 0.4 % (0.0-6.0); HEMATOCRIT 36.8 % (38.2-49.6); LYMPHOCYTES # (AUTO) 1.5 (1.0-3.2); LYMPHOCYTES % 9.4 % (18.0-39.1); MEAN CORPUSCULAR HEMOGLOBIN 25.8 pg (28-32); MEAN CORPUSCULAR HGB CONC 32.6 g/dL (31-35); MEAN CORPUSCULAR VOLUME 79.1 fL (81-99); MONOCYTES # (AUTO) 1.3 (0.2-0.8); MONOCYTES % 8.2 % (4.4-11.3); NEUTROPHILS # (AUTO) 13.1 (2.1-6.9); NEUTROPHILS % 81.1 % (38.7-80.0); PLATELET COUNT 284 x10e3/uL (140-360); RED BLOOD COUNT 4.65 x10e6/uL (4.3-5.7); RED CELL DISTRIBUTION WIDTH 15.9 % (11.7-14.4)
[2017-12-05 07:02] LABS: ANION GAP 10.8 mmol/L (8-16); BLOOD UREA NITROGEN 16 mg/dL (7-26); BUN/CREATININE RATIO 18 (6-25); CALCIUM 8.2 mg/dL (8.4-10.2); CARBON DIOXIDE 23 mmol/L (22-29); CHLORIDE 106 mmol/L (98-107); CREATININE, SERUM 0.87 mg/dL (0.72-1.25); EST GLOMERULAR FILTRATION RATE > 60 ML/MIN (60-); GLUCOSE 85 mg/dL (74-118); POTASSIUM 3.8 mmol/L (3.5-5.1); SODIUM 136 mmol/L (136-145)
[2017-12-05] MEDS: PANTOPRAZOLE 40 MG 10ML VIAL IV SCH (07:55)
--- NOTE | 2017-12-05 09:56 | Operative Report ---
DATE OF PROCEDURE: December 03, 2017 PREOPERATIVE DIAGNOSIS: Recurrent urinary tract infections. POSTOPERATIVE DIAGNOSIS: Recurrent urinary tract infections. OPERATIONS PERFORMED 1. Cystourethroscopy with bilateral ureteral catheterization and placement of temporary bilateral indwelling ureteral stents. 2. Bilateral retrograde ureteropyelography. 3. Interpretation of retrograde ureteropyelography. ANESTHESIA: General. COMPLICATIONS: None. CLINICAL SUMMARY: Alli Mendoza is a 77-year-old man with abdominal masses planning on being excised by the general surgery service. The patient has had documented urinary tract infections. He has undergone previous cystoscopy, which showed no evidence of obvious fistulous. He is brought to the operating room for placement of stents to aid the general surgery service in their procedure, as well as for re-evaluating his urinary tract. He is aware of the risks of bleeding, infection, injury to adjacent structures, need for additional procedures. And elected to proceed. OPERATIVE PROCEDURE IN DETAIL: Informed consent was verified. Alli Mendoza was properly identified and taken to the operating room and placed on the operating table in the supine position. Anesthesia was uneventfully begun. The patient then carefully and gently repositioned in the dorsal lithotomy position with all pressure points well-padded. His genitalia were prepared and draped in the usual sterile fashion. A 22.5-Spanish cystoscope sheath with visual obturator in place was atraumatically inserted in the patient's urethra. It was guided down the unremarkable urethra through the normal sphincteric region and into the prostate bed, which was significant for severely obstructing BPH with kissing lateral lobes with impingement on the left lateral lobe on to the right side at the level of the apex with severe visual obstruction. Panendoscopy of the urinary bladder revealed grade 2 trabeculations, but no tumors. No stones and no diverticula. Normally positioned and configured ureteral orifices were identified. A 5-Spanish open-ended ureteral catheter was then inserted into each side. Both ureteral catheters were guided proximally. Cystoscope was then withdrawn. Brown catheter was placed. Contrast was then injected into each ureteral catheter and performed retrograde ureteropyelography. The stents were then incorporated into the Brown catheter drainage system with the specialized adapter. Interpretation of retrograde ureteropyelography. Contrast was instilled in a retrograde fashion bilaterally. There were no tumors. No stones and no diverticula. Unobstructed drainage was observed bilaterally fluoroscopically. The patient was then handed off to the general surgery service for exploratory laparotomy and indicated procedures. Plans will be to remove the ureteral stents at the end of the case. Long-term plans once the patient has recovered from the general surgery procedure is to perform a transurethral resection of the prostate on this patient with long-standing BPH. Digital rectal examination at the end of the case revealed at least a 50 g prostate that was smooth, nonfluctuant and without any nodules. Job#: [id number] RI cc:CATRACHO SANTILLAN MD
[2017-12-06] VITALS (8 sets, daily range): BP systolic 135–164; BP diastolic 80–89
[2017-12-06] MEDS: SODIUM CHLORIDE 0.9% 1000ML 1,000 ML IV SCH ×2 (01:28→14:39)
[2017-12-06] MEDS: SODIUM CHLORIDE 0.9% 250ML IRRIG IR SCH ×6 (01:29→21:06)
[2017-12-06] MEDS: PIPER-TAZ 3.375 GM 50 ML IV SCH ×4 (01:48→19:57)
[2017-12-06] MEDS: HYDROMORPHONE 1MG/1ML INJ IV PRN ×5 (03:45→22:40)
[2017-12-06 05:29] LABS: BASOPHILS # (AUTO) 0.1 (0.0-0.1); BASOPHILS % 0.4 % (0.0-1.0); EOSINOPHILS # (AUTO) 0.3 (0.0-0.4); EOSINOPHILS % 1.9 % (0.0-6.0); HEMATOCRIT 37.3 % (38.2-49.6); HEMOGLOBIN 12.1 g/dL (14.0-18.0); LYMPHOCYTES # (AUTO) 1.4 (1.0-3.2); LYMPHOCYTES % 10.3 % (18.0-39.1); MEAN CORPUSCULAR HEMOGLOBIN 26.2 pg (28-32); MEAN CORPUSCULAR HGB CONC 32.4 g/dL (31-35); MEAN CORPUSCULAR VOLUME 80.7 fL (81-99); MONOCYTES # (AUTO) 1.2 (0.2-0.8); MONOCYTES % 8.7 % (4.4-11.3); NEUTROPHILS # (AUTO) 10.8 (2.1-6.9); NEUTROPHILS % 78.1 % (38.7-80.0); PLATELET COUNT 277 x10e3/uL (140-360); RED BLOOD COUNT 4.62 x10e6/uL (4.3-5.7); RED CELL DISTRIBUTION WIDTH 15.6 % (11.7-14.4)
[2017-12-06 05:51] LABS: ANION GAP 13.8 mmol/L (8-16); BLOOD UREA NITROGEN 13 mg/dL (7-26); BUN/CREATININE RATIO 16 (6-25); CALCIUM 8.5 mg/dL (8.4-10.2); CARBON DIOXIDE 22 mmol/L (22-29); CHLORIDE 104 mmol/L (98-107); CREATININE, SERUM 0.79 mg/dL (0.72-1.25); EST GLOMERULAR FILTRATION RATE > 60 ML/MIN (60-); GLUCOSE 86 mg/dL (74-118); POTASSIUM 3.8 mmol/L (3.5-5.1); SODIUM 136 mmol/L (136-145)
[2017-12-06] MEDS: PANTOPRAZOLE 40 MG 10ML VIAL IV SCH (08:16)
[2017-12-06] MEDS ORDERED: HYDROMORPHONE 20MG/ NS 100ML IV PRN (16:30)
[2017-12-07] VITALS (8 sets, daily range): BP systolic 138–167; BP diastolic 76–99
[2017-12-07] MEDS: SODIUM CHLORIDE 0.9% 250ML IRRIG IR SCH ×5 (01:21→16:23)
[2017-12-07] MEDS: SODIUM CHLORIDE 0.9% 1000ML 1,000 ML IV SCH ×4 (01:28→16:22)
[2017-12-07] MEDS: PIPER-TAZ 3.375 GM 50 ML IV SCH ×4 (01:28→20:22)
[2017-12-07] MEDS: HYDROMORPHONE 1MG/1ML INJ IV PRN ×4 (02:20→23:15)
[2017-12-07] MEDS: PANTOPRAZOLE 40 MG 10ML VIAL IV SCH (08:36)
[2017-12-07] MEDS: ONDANSETRON HCL INJ 2 MG/ML VIAL IV PRN (09:00)
[2017-12-08] VITALS (7 sets, daily range): BP systolic 135–166; BP diastolic 66–81
[2017-12-08] MEDS: SODIUM CHLORIDE 0.9% 1000ML 1,000 ML IV SCH ×2 (00:26→11:16)
[2017-12-08] MEDS: PIPER-TAZ 3.375 GM 50 ML IV SCH ×4 (02:47→19:40)
[2017-12-08] MEDS: HYDROMORPHONE 1MG/1ML INJ IV PRN ×3 (03:35→21:17)
[2017-12-08] MEDS: PANTOPRAZOLE 40 MG 10ML VIAL IV SCH (08:12)
[2017-12-08] MEDS: ONDANSETRON HCL INJ 2 MG/ML VIAL IV PRN (08:12)
[2017-12-08] MEDS: HYDROCODONE/APAP 7.5MG-325MG 1 EA TAB PO PRN ×2 (14:38→22:52)
[2017-12-09] VITALS (8 sets, daily range): BP systolic 106–170; BP diastolic 57–74
[2017-12-09] MEDS: PIPER-TAZ 3.375 GM 50 ML IV SCH ×4 (01:33→22:03)
[2017-12-09] MEDS: HYDROCODONE/APAP 7.5MG-325MG 1 EA TAB PO PRN ×2 (04:37→21:50)
[2017-12-09 05:17] LABS: BASOPHILS % 0.4 % (0.0-1.0); EOSINOPHILS % 9.3 % (0.0-6.0); HEMATOCRIT 33.3 % (38.2-49.6); HEMOGLOBIN 10.9 g/dL (14.0-18.0); LYMPHOCYTES # (AUTO) 1.5 (1.0-3.2); LYMPHOCYTES % 13.9 % (18.0-39.1); MEAN CORPUSCULAR HEMOGLOBIN 25.9 pg (28-32); MEAN CORPUSCULAR HGB CONC 32.7 g/dL (31-35); MEAN CORPUSCULAR VOLUME 79.1 fL (81-99); MONOCYTES % 9.4 % (4.4-11.3); NEUTROPHILS # (AUTO) 7.2 (2.1-6.9); NEUTROPHILS % 66.5 % (38.7-80.0); PLATELET COUNT 280 x10e3/uL (140-360); RED BLOOD COUNT 4.21 x10e6/uL (4.3-5.7); RED CELL DISTRIBUTION WIDTH 15.7 % (11.7-14.4)
[2017-12-09 05:32] LABS: ANION GAP 12.4 mmol/L (8-16); BLOOD UREA NITROGEN 13 mg/dL (7-26); BUN/CREATININE RATIO 17 (6-25); CALCIUM 8.5 mg/dL (8.4-10.2); CARBON DIOXIDE 25 mmol/L (22-29); CHLORIDE 106 mmol/L (98-107); CREATININE, SERUM 0.78 mg/dL (0.72-1.25); EST GLOMERULAR FILTRATION RATE > 60 ML/MIN (60-); GLUCOSE 96 mg/dL (74-118); POTASSIUM 3.4 mmol/L (3.5-5.1); SODIUM 140 mmol/L (136-145)
[2017-12-09] MEDS: PANTOPRAZOLE 40 MG 10ML VIAL IV SCH (08:45)
[2017-12-09] MEDS ORDERED: HYDROCORTISONE 1% CREAM 30 GM TUBE TOP PRN (08:45)
[2017-12-09] MEDS: HYDROMORPHONE 1MG/1ML INJ IV PRN (14:05)
[2017-12-10 00:33] VITALS: BP 155/67
[2017-12-10] MEDS: PIPER-TAZ 3.375 GM 50 ML IV SCH ×2 (01:23→09:10)
[2017-12-10] MEDS: HYDROCODONE/APAP 7.5MG-325MG 1 EA TAB PO PRN ×2 (02:46→14:41)
[2017-12-10 04:00] VITALS: BP 149/71
[2017-12-10 07:44] VITALS: BP 155/69
[2017-12-10 08:25] VITALS: BP 155/69
[2017-12-10] MEDS: PANTOPRAZOLE 40 MG 10ML VIAL IV SCH (09:10)
[2017-12-10 12:08] VITALS: BP 148/73
[2017-12-10] MEDS ORDERED: PHENAZOPYRIDINE HCL 100 MG TAB PO PRN (14:15)
[2017-12-10] MEDS ORDERED: NORCO 7.5-3251 EACH PO (17:09)
[2017-12-10] MEDS ORDERED: PYRIDIUM100 MG PO (17:10)
== END 2017-12-10 17:36 | disposition home or self-care (01) | DRG 330 ==
LOC: OR 07:30 → PACU V 12:41 → ICU 14:27 → IMCU 12-04 13:39 → MED/SURG 12-07 18:30
PROVIDERS: ADMIT Surgery; ATTEND Surgery
PROC: 07BB0ZX Excision of Mesenteric Lymphatic, Open Approach, Diagnostic (ICD-10-PCS; 2017-12-03)
PROC: 0DT80ZZ Resection of Small Intestine, Open Approach (ICD-10-PCS; 2017-12-03)
PROC: 0T788DZ Dilation of Bilateral Ureters with Intraluminal Device, Via Natural or Artificial Opening Endoscopic (ICD-10-PCS; 2017-12-03)
PROC: BT141ZZ Fluoroscopy of Kidneys, Ureters and Bladder using Low Osmolar Contrast (ICD-10-PCS; 2017-12-03)
PROC: 0DTP0ZZ Resection of Rectum, Open Approach (ICD-10-PCS; principal; 2017-12-03 08:00)
PROC: 0DTN0ZZ Resection of Sigmoid Colon, Open Approach (ICD-10-PCS; 2017-12-03 08:00)
DX: K57.32 Diverticulitis of large intestine without perforation or abscess without bleeding (principal); K63.2 Fistula of intestine; N39.0 Urinary tract infection, site not specified; N40.1 Benign prostatic hyperplasia with lower urinary tract symptoms; D64.9 Anemia, unspecified; R31.9 Hematuria, unspecified; G47.33 Obstructive sleep apnea (adult) (pediatric)
CPT/HCPCS: 36415; 71046; 74420; 80048; 82948; 85025; 86850; 86900; 88305; 88307; 93005; 96361; 96367; 96372; 96376; 97139; J0694; J1100; J1170; J2001; J2250; J2405; J2543; J7030

== ENCOUNTER 2018-01-20 05:01 | Inpatient (IN) | payer MEDICARE, BC ==
[2018-01-17 11:57] LABS: BASOPHILS % 0.3 % (0.0-1.0); EOSINOPHILS # (AUTO) 0.4 (0.0-0.4); EOSINOPHILS % 2.9 % (0.0-6.0); HEMATOCRIT 37.9 % (38.2-49.6); HEMOGLOBIN 12.1 g/dL (14.0-18.0); LYMPHOCYTES # (AUTO) 1.5 (1.0-3.2); LYMPHOCYTES % 12.1 % (18.0-39.1); MEAN CORPUSCULAR HEMOGLOBIN 25.9 pg (28-32); MEAN CORPUSCULAR HGB CONC 31.9 g/dL (31-35); MONOCYTES # (AUTO) 0.9 (0.2-0.8); MONOCYTES % 7.5 % (4.4-11.3); NEUTROPHILS # (AUTO) 9.2 (2.1-6.9); PLATELET COUNT 276 x10e3/uL (140-360); RED BLOOD COUNT 4.68 x10e6/uL (4.3-5.7); RED CELL DISTRIBUTION WIDTH 14.4 % (11.7-14.4)
[~2018-01-20] VITALS: Ht 185.4 cm; Wt 97.3 kg
[~2018-01-20 05:01] MED LIST changes: -IOPAMIDOL 610MG/1ML 300 MG/ML VIAL IV ONE; +MELATONIN3 M1; +NORCO 7.5-3251 EACH PO; +PYRIDIUM100 MG PO
[2018-01-20] MEDS ORDERED: GENTAMICIN 80MG/NS 100 ML 200 ML IV ONE (05:41)
[2018-01-20] MEDS ORDERED: CEFTRIAXONE SOD 1 GM VIAL ONE (05:41)
[2018-01-20] MEDS ORDERED: IOPAMIDOL 300MG/ML 50ML INFUS..BTL IV ONE (07:00)
[2018-01-20] MEDS ORDERED: FENTANYL CITRATE/PF 100MCG/2 ML INJ ONE ×2 (09:27→18:24)
[2018-01-20] MEDS ORDERED: DIPHENHYDRAMINE HCL INJ 50 MG/ML VIAL IM PRN (09:30)
[2018-01-20] MEDS ORDERED: DIPHENHYDRAMINE HCL 25 MG CAP PO PRN (09:30)
[2018-01-20] MEDS: CEFTRIAXONE SOD 1 GM VIAL IV SCH (09:30)
[2018-01-20 10:36] VITALS: BP 166/77
[2018-01-20] MEDS: ACETAMINOPHEN/CODEINE 300MG - 30MG TAB PO PRN ×3 (10:52→22:42)
[2018-01-20] MEDS: D5.45%NS/KCL 20MEQ 1,000 ML IV SCH ×3 (12:27→23:00)
[2018-01-20 13:32] VITALS: BP 160/72
[2018-01-20 15:00] VITALS: BP 160/72
[2018-01-20 16:47] VITALS: BP 151/69
[2018-01-20] MEDS ORDERED: SEVOFLURANE INHAL SOLN 250 ML PEN BTL ONE (17:32)
[2018-01-20] MEDS ORDERED: DEXAMETHASONE SOD PHOS INJ 4 MG/ML VIAL ONE (17:32)
[2018-01-20] MEDS ORDERED: ONDANSETRON HCL INJ 2 MG/ML VIAL ONE (17:32)
[2018-01-20] MEDS ORDERED: LIDOCAINE HCL 2% LOCAL INJ 5 ML SDV VIAL INJ ONE (17:32)
[2018-01-20] MEDS ORDERED: PROPOFOL IV EMULSION 10 MG/ML 20 ML VIAL ONE (17:32)
[2018-01-20] MEDS: DOCUSATE SODIUM 100 MG CAP PO SCH (18:11)
[2018-01-20] MEDS ORDERED: MIDAZOLAM HCL 2 MG/2 ML VIAL ONE (18:24)
[2018-01-20 20:00] VITALS: BP 136/67
[2018-01-20 20:38] VITALS: BP 136/67
[2018-01-21] VITALS (8 sets, daily range): BP systolic 124–167; BP diastolic 64–80
[2018-01-21] MEDS: ACETAMINOPHEN/CODEINE 300MG - 30MG TAB PO PRN ×3 (03:27→20:52)
[2018-01-21 04:40] LABS: BASOPHILS % 0.1 % (0.0-1.0); EOSINOPHILS # (AUTO) 0.1 (0.0-0.4); EOSINOPHILS % 0.4 % (0.0-6.0); HEMATOCRIT 35.9 % (38.2-49.6); HEMOGLOBIN 11.7 g/dL (14.0-18.0); LYMPHOCYTES # (AUTO) 1.6 (1.0-3.2); LYMPHOCYTES % 10.1 % (18.0-39.1); MEAN CORPUSCULAR HEMOGLOBIN 25.9 pg (28-32); MEAN CORPUSCULAR HGB CONC 32.6 g/dL (31-35); MEAN CORPUSCULAR VOLUME 79.4 fL (81-99); MONOCYTES # (AUTO) 1.1 (0.2-0.8); MONOCYTES % 6.9 % (4.4-11.3); NEUTROPHILS # (AUTO) 13.4 (2.1-6.9); NEUTROPHILS % 82.1 % (38.7-80.0); PLATELET COUNT 291 x10e3/uL (140-360); RED BLOOD COUNT 4.52 x10e6/uL (4.3-5.7); RED CELL DISTRIBUTION WIDTH 14.5 % (11.7-14.4)
--- NOTE | 2018-01-21 04:45 | Consultation ---
DATE OF CONSULTATION: January 21, 2018 REASON FOR CONSULTATION: Postoperative management. HISTORY OF PRESENT ILLNESS: The patient is a 77-year-old gentleman who is status post TURP for BPH, who was doing well postoperatively. Denies any chest pain, fever, chills, headache, shortness of breath, or dizziness. REVIEW OF SYSTEMS: Positive for worsening BPH and reflux disease. MEDICATIONS: See MAR. ALLERGIES: SEE MAR. SOCIAL HISTORY: Lives at home with his . Nonsmoker and nondrinker. FAMILY HISTORY: Noncontributory. PHYSICAL EXAMINATION VITALS: 98.6, blood pressure 136/74, pulse 74, sats 98%. GENERAL: He is in no apparent distress lying in bed. NECK: Supple. CARDIOVASCULAR: Regular rate and rhythm. LUNGS: Clear to auscultation bilaterally. ABDOMEN: Good bowel sounds. Soft and nontender. : Brown is in place with some blood-tinged urine. EXTREMITIES: No clubbing or cyanosis. NEUROLOGIC: Nonfocal. ASSESSMENT 1. Anemia: Check CBC. 2. Leukocytosis: Continue to monitor. 3. BPH: Status post transurethral resection of prostate. Will restart his home medications. 4. Reflux disease: Will restart his home medications. Please see hospital chart for full details. Job#: [id number] TRI
[2018-01-21 05:12] LABS: ANION GAP 9.9 mmol/L (8-16); BLOOD UREA NITROGEN 11 mg/dL (7-26); BUN/CREATININE RATIO 13 (6-25); CALCIUM 8.3 mg/dL (8.4-10.2); CARBON DIOXIDE 23 mmol/L (22-29); CHLORIDE 107 mmol/L (98-107); CREATININE, SERUM 0.83 mg/dL (0.72-1.25); EST GLOMERULAR FILTRATION RATE > 60 ML/MIN (60-); GLUCOSE 121 mg/dL (74-118); POTASSIUM 3.9 mmol/L (3.5-5.1); SODIUM 136 mmol/L (136-145)
[2018-01-21] MEDS: D5.45%NS/KCL 20MEQ 1,000 ML IV SCH ×3 (05:25→20:52)
[2018-01-21] MEDS ORDERED: PANTOPRAZOLE SOD 40 MG TABEC PO SCH (09:00)
[2018-01-21] MEDS ORDERED: BISACODYL 10 MG SUPP PR ONE (11:15)
[2018-01-21] MEDS: CEFTRIAXONE SOD 1 GM VIAL IV SCH (11:15)
[2018-01-21] MEDS: PANTOPRAZOLE SOD 40 MG TABEC PO SCH (11:15)
[2018-01-21] MEDS: FINASTERIDE 5 MG TAB PO SCH (11:15)
[2018-01-21] MEDS: TAMSULOSIN HCL 0.4 MG CAP PO SCH ×2 (11:15→17:31)
[2018-01-21] MEDS: DOCUSATE SODIUM 100 MG CAP PO SCH ×2 (11:15→17:31)
[2018-01-21] MEDS: CALCIUM CARBONATE 500 MG CHEWABLE TABS PO SCH ×2 (12:39→17:31)
[2018-01-22] VITALS (8 sets, daily range): BP systolic 124–148; BP diastolic 59–72
[2018-01-22] MEDS: D5.45%NS/KCL 20MEQ 1,000 ML IV SCH ×3 (01:21→17:48)
[2018-01-22] MEDS: ACETAMINOPHEN/CODEINE 300MG - 30MG TAB PO PRN ×4 (04:45→22:25)
[2018-01-22 06:08] LABS: BASOPHILS % 0.3 % (0.0-1.0); EOSINOPHILS # (AUTO) 0.5 (0.0-0.4); EOSINOPHILS % 5.2 % (0.0-6.0); HEMATOCRIT 34.5 % (38.2-49.6); LYMPHOCYTES # (AUTO) 1.9 (1.0-3.2); LYMPHOCYTES % 19.3 % (18.0-39.1); MEAN CORPUSCULAR HEMOGLOBIN 25.2 pg (28-32); MEAN CORPUSCULAR HGB CONC 31.9 g/dL (31-35); MEAN CORPUSCULAR VOLUME 79.1 fL (81-99); MONOCYTES # (AUTO) 0.8 (0.2-0.8); MONOCYTES % 8.3 % (4.4-11.3); NEUTROPHILS # (AUTO) 6.6 (2.1-6.9); NEUTROPHILS % 66.6 % (38.7-80.0); PLATELET COUNT 238 x10e3/uL (140-360); RED BLOOD COUNT 4.36 x10e6/uL (4.3-5.7); RED CELL DISTRIBUTION WIDTH 14.6 % (11.7-14.4)
[2018-01-22 06:25] LABS: ANION GAP 8.7 mmol/L (8-16); BLOOD UREA NITROGEN 8 mg/dL (7-26); BUN/CREATININE RATIO 10 (6-25); CALCIUM 8.2 mg/dL (8.4-10.2); CARBON DIOXIDE 25 mmol/L (22-29); CHLORIDE 106 mmol/L (98-107); CREATININE, SERUM 0.83 mg/dL (0.72-1.25); EST GLOMERULAR FILTRATION RATE > 60 ML/MIN (60-); GLUCOSE 107 mg/dL (74-118); POTASSIUM 3.7 mmol/L (3.5-5.1); SODIUM 136 mmol/L (136-145)
[2018-01-22] MEDS: CALCIUM CARBONATE 500 MG CHEWABLE TABS PO SCH ×3 (10:45→17:48)
[2018-01-22] MEDS: CEFTRIAXONE SOD 1 GM VIAL IV SCH (10:45)
[2018-01-22] MEDS: PANTOPRAZOLE SOD 40 MG TABEC PO SCH (10:45)
[2018-01-22] MEDS: DOCUSATE SODIUM 100 MG CAP PO SCH ×2 (10:45→17:48)
[2018-01-22] MEDS: PHENAZOPYRIDINE HCL 100 MG TAB PO SCH ×3 (10:45→17:48)
[2018-01-22] MEDS: TAMSULOSIN HCL 0.4 MG CAP PO SCH ×2 (10:45→17:48)
[2018-01-22] MEDS: FINASTERIDE 5 MG TAB PO SCH (10:45)
[2018-01-23] VITALS: BP 129/60
[2018-01-23] MEDS: D5.45%NS/KCL 20MEQ 1,000 ML IV SCH ×2 (01:51→17:16)
[2018-01-23 05:55] LABS: BASOPHILS % 0.3 % (0.0-1.0); EOSINOPHILS # (AUTO) 0.5 (0.0-0.4); EOSINOPHILS % 5.1 % (0.0-6.0); HEMATOCRIT 33.7 % (38.2-49.6); LYMPHOCYTES # (AUTO) 1.7 (1.0-3.2); LYMPHOCYTES % 17.2 % (18.0-39.1); MEAN CORPUSCULAR HEMOGLOBIN 25.7 pg (28-32); MEAN CORPUSCULAR HGB CONC 32.6 g/dL (31-35); MEAN CORPUSCULAR VOLUME 78.7 fL (81-99); MONOCYTES # (AUTO) 0.9 (0.2-0.8); MONOCYTES % 9.3 % (4.4-11.3); NEUTROPHILS # (AUTO) 6.8 (2.1-6.9); NEUTROPHILS % 67.8 % (38.7-80.0); PLATELET COUNT 251 x10e3/uL (140-360); RED BLOOD COUNT 4.28 x10e6/uL (4.3-5.7); RED CELL DISTRIBUTION WIDTH 14.6 % (11.7-14.4)
[2018-01-23 06:14] LABS: ANION GAP 9.7 mmol/L (8-16); BLOOD UREA NITROGEN 8 mg/dL (7-26); BUN/CREATININE RATIO 9 (6-25); CALCIUM 8.5 mg/dL (8.4-10.2); CARBON DIOXIDE 25 mmol/L (22-29); CHLORIDE 104 mmol/L (98-107); CREATININE, SERUM 0.85 mg/dL (0.72-1.25); EST GLOMERULAR FILTRATION RATE > 60 ML/MIN (60-); GLUCOSE 99 mg/dL (74-118); POTASSIUM 3.7 mmol/L (3.5-5.1); SODIUM 135 mmol/L (136-145)
[2018-01-23 07:20] VITALS: BP 126/59
[2018-01-23] MEDS: CEFTRIAXONE SOD 1 GM VIAL IV SCH (08:59)
[2018-01-23] MEDS: PANTOPRAZOLE SOD 40 MG TABEC PO SCH (08:59)
[2018-01-23] MEDS: DOCUSATE SODIUM 100 MG CAP PO SCH ×2 (08:59→17:16)
[2018-01-23] MEDS: PHENAZOPYRIDINE HCL 100 MG TAB PO SCH ×3 (08:59→17:16)
[2018-01-23] MEDS: CALCIUM CARBONATE 500 MG CHEWABLE TABS PO SCH ×3 (08:59→17:16)
[2018-01-23] MEDS: FINASTERIDE 5 MG TAB PO SCH (08:59)
[2018-01-23] MEDS: TAMSULOSIN HCL 0.4 MG CAP PO SCH ×2 (08:59→17:16)
[2018-01-23] MEDS: ACETAMINOPHEN/CODEINE 300MG - 30MG TAB PO PRN ×3 (08:59→22:02)
[2018-01-23 09:16] VITALS: BP 126/59
[2018-01-23 10:36] VITALS: BP 136/63
[2018-01-23 16:54] VITALS: BP 127/60
[2018-01-23 20:00] VITALS: BP 127/62
[2018-01-24] VITALS: BP 108/56
[2018-01-24] MEDS: D5.45%NS/KCL 20MEQ 1,000 ML IV SCH (02:00)
[2018-01-24] MEDS: ACETAMINOPHEN/CODEINE 300MG - 30MG TAB PO PRN ×2 (02:30→02:36)
[2018-01-24 04:00] VITALS: BP 125/57
[2018-01-24 04:48] LABS: BASOPHILS % 0.4 % (0.0-1.0); EOSINOPHILS # (AUTO) 0.5 (0.0-0.4); EOSINOPHILS % 5.5 % (0.0-6.0); HEMATOCRIT 34.6 % (38.2-49.6); LYMPHOCYTES # (AUTO) 1.9 (1.0-3.2); LYMPHOCYTES % 20.1 % (18.0-39.1); MEAN CORPUSCULAR HEMOGLOBIN 25.4 pg (28-32); MEAN CORPUSCULAR HGB CONC 31.8 g/dL (31-35); MEAN CORPUSCULAR VOLUME 79.9 fL (81-99); MONOCYTES # (AUTO) 0.9 (0.2-0.8); NEUTROPHILS # (AUTO) 6.1 (2.1-6.9); NEUTROPHILS % 64.8 % (38.7-80.0); PLATELET COUNT 254 x10e3/uL (140-360); RED BLOOD COUNT 4.33 x10e6/uL (4.3-5.7); RED CELL DISTRIBUTION WIDTH 14.4 % (11.7-14.4)
[2018-01-24 05:08] LABS: ANION GAP 9.9 mmol/L (8-16); BLOOD UREA NITROGEN 8 mg/dL (7-26); BUN/CREATININE RATIO 8 (6-25); CALCIUM 8.4 mg/dL (8.4-10.2); CARBON DIOXIDE 26 mmol/L (22-29); CHLORIDE 104 mmol/L (98-107); CREATININE, SERUM 0.98 mg/dL (0.72-1.25); EST GLOMERULAR FILTRATION RATE > 60 ML/MIN (60-); GLUCOSE 111 mg/dL (74-118); POTASSIUM 3.9 mmol/L (3.5-5.1); SODIUM 136 mmol/L (136-145)
[2018-01-24] MEDS: TAMSULOSIN HCL 0.4 MG CAP PO SCH (08:04)
[2018-01-24] MEDS: DOCUSATE SODIUM 100 MG CAP PO SCH (08:04)
[2018-01-24] MEDS: FINASTERIDE 5 MG TAB PO SCH (08:04)
[2018-01-24] MEDS: CALCIUM CARBONATE 500 MG CHEWABLE TABS PO SCH ×2 (08:04→12:26)
[2018-01-24] MEDS: PANTOPRAZOLE SOD 40 MG TABEC PO SCH (08:05)
[2018-01-24] MEDS: PHENAZOPYRIDINE HCL 100 MG TAB PO SCH ×2 (08:05→12:27)
[2018-01-24 08:41] VITALS: BP 125/62
[2018-01-24 09:00] VITALS: BP 125/62
[2018-01-24] MEDS: CEFTRIAXONE SOD 1 GM VIAL IV SCH (09:34)
[2018-01-24] MEDS ORDERED: BISACODYL 10 MG SUPP PR ONE (09:45)
[2018-01-24 12:31] VITALS: BP 115/55
[2018-01-24] MEDS ORDERED: TYLENOL WITH C1 EACH PO (12:50)
[2018-01-24] MEDS ORDERED: COLACE100 MG PO (12:51)
[2018-01-24] MEDS ORDERED: LEVAQUIN250 MG PO (12:53)
== END 2018-01-24 14:15 | disposition home health service (06) | DRG 714 ==
LOC: OR 05:01 → PACU V 09:24 → MED/SURG 09:50
PROVIDERS: ADMIT Internal Medicine; ATTEND Internal Medicine
PROC: 0VT08ZZ Resection of Prostate, Via Natural or Artificial Opening Endoscopic (ICD-10-PCS; principal; 2018-01-20 07:00)
DX: N40.0 Benign prostatic hyperplasia without lower urinary tract symptoms (principal); D64.9 Anemia, unspecified; K21.9 Gastro-esophageal reflux disease without esophagitis; G47.33 Obstructive sleep apnea (adult) (pediatric); Z87.891 Personal history of nicotine dependence
CPT/HCPCS: 36415; 74420; 80048; 83735; 85025; 88305; 96360; J0696; J1100; J1580; J2001; J2250; J2405

== ENCOUNTER → 2018-01-31 | Emergency (ER) | payer MEDICARE, BC ==
[~2018-01-31] VITALS: Ht 185.4 cm; Wt 97.1 kg
[~2018-01-31] MED LIST changes: +CEFTRIAXONE SOD 1 GM VIAL IV ONE; +HYDROMORPHONE 1MG/1ML INJ IV PRN; +LEVAQUIN250 MG PO; +LORAZEPAM INJ 2 MG/ML VIAL IV ONE; +ONDANSETRON HCL INJ 2 MG/ML VIAL IV PRN; +PROMETHAZINE 12.5MG/ NACL 0.9% 12.5 MG/50 ML BAG IV PRN; +SODIUM CHLORIDE 0.9% 500ML 500 ML IV STA; +TYLENOL WITH C1 EACH PO
[2018-01-31 16:47] LABS: CLARITY,URINE CLOUDY (CLEAR); COLOR,URINE AMBER (YELLOW)
[2018-01-31 16:48] LABS: BILIRUBIN,URINE 2+ (NEGATIVE); KETONES,URINE TRACE (NEGATIVE); LEUKOCYTE ESTERASE ,URINE TRACE (NEGATIVE); NITRITE,URINE POSITIVE (NEGATIVE); PROTEIN,URINE DIPSTICK 2+ (NEGATIVE); URINE UROBILINOGEN 8 mg/dL (0.2 - 1)
[2018-01-31 16:55] LABS: AMORPHOUS SEDIMENT,URINE MODERATE (FEW); BACTERIA,URINE RARE /HPF; RBC,URINE 21-50 /HPF (0-5); WBC,URINE (MAN) 0-5 /HPF (0-5)
[2018-01-31 19:19] LABS: BASOPHILS % 0.3 % (0.0-1.0); EOSINOPHILS # (AUTO) 0.4 (0.0-0.4); EOSINOPHILS % 3.8 % (0.0-6.0); HEMATOCRIT 36.8 % (38.2-49.6); HEMOGLOBIN 11.5 g/dL (14.0-18.0); LYMPHOCYTES # (AUTO) 1.6 (1.0-3.2); LYMPHOCYTES % 15.2 % (18.0-39.1); MEAN CORPUSCULAR HEMOGLOBIN 24.8 pg (28-32); MEAN CORPUSCULAR HGB CONC 31.3 g/dL (31-35); MEAN CORPUSCULAR VOLUME 79.3 fL (81-99); MONOCYTES # (AUTO) 0.7 (0.2-0.8); MONOCYTES % 6.3 % (4.4-11.3); NEUTROPHILS # (AUTO) 7.9 (2.1-6.9); NEUTROPHILS % 74.1 % (38.7-80.0); PLATELET COUNT 350 x10e3/uL (140-360); RED BLOOD COUNT 4.64 x10e6/uL (4.3-5.7); RED CELL DISTRIBUTION WIDTH 14.4 % (11.7-14.4)
[2018-01-31 19:36] LABS: ALANINE AMINOTRANSFERASE 10 IU/L (0-55); ALBUMIN 3.2 g/dL (3.5-5.0); ALBUMIN/GLOBULIN RATIO 0.9 (0.8-2.0); ALKALINE PHOSPHATASE 76 IU/L (40-150); ANION GAP 13.3 mmol/L (8-16); BLOOD UREA NITROGEN 15 mg/dL (7-26); BUN/CREATININE RATIO 13 (6-25); CALCIUM 9.2 mg/dL (8.4-10.2); CARBON DIOXIDE 25 mmol/L (22-29); CHLORIDE 105 mmol/L (98-107); CREATININE, SERUM 1.13 mg/dL (0.72-1.25); EST GLOMERULAR FILTRATION RATE > 60 ML/MIN (60-); GLUCOSE 97 mg/dL (74-118); POTASSIUM 4.3 mmol/L (3.5-5.1); SODIUM 139 mmol/L (136-145)
[2018-01-31 21:00] VITALS: BP 138/72
== END | disposition home or self-care (01) ==
LOC: ER 14:49
DX: R30.0 Dysuria (principal); R10.30 Lower abdominal pain, unspecified; N39.0 Urinary tract infection, site not specified; N30.91 Cystitis, unspecified with hematuria; D50.9 Iron deficiency anemia, unspecified; K21.9 Gastro-esophageal reflux disease without esophagitis; H40.9 Unspecified glaucoma; Z98.0 Intestinal bypass and anastomosis status
CPT/HCPCS: 36415; 51700; 80053; 81001; 85025; 99284; J0696; J1170; J2060; J2405; J2550; J7040

== ENCOUNTER → 2019-03-10 | Day surgery (SDC) | payer MEDICARE, BC ==
[2019-03-07 15:29] LABS: BASOPHILS % 0.3 % (0.0-1.0); EOSINOPHILS # (AUTO) 0.4 (0.0-0.4); EOSINOPHILS % 4.6 % (0.0-6.0); HEMATOCRIT 40.7 % (38.2-49.6); HEMOGLOBIN 12.7 g/dL (14.0-18.0); LYMPHOCYTES # (AUTO) 1.6 (1.0-3.2); LYMPHOCYTES % 16.6 % (18.0-39.1); MEAN CORPUSCULAR HGB CONC 31.2 g/dL (31-35); MEAN CORPUSCULAR VOLUME 76.9 fL (81-99); MONOCYTES # (AUTO) 0.7 (0.2-0.8); MONOCYTES % 7.1 % (4.4-11.3); NEUTROPHILS # (AUTO) 6.8 (2.1-6.9); NEUTROPHILS % 71.1 % (38.7-80.0); PLATELET COUNT 247 x10e3/uL (140-360); RED BLOOD COUNT 5.29 x10e6/uL (4.3-5.7); RED CELL DISTRIBUTION WIDTH 17.2 % (11.7-14.4)
--- NOTE | 2019-03-07 15:39 | Diagnostic Imaging Report ---
Chest, 2 views, 03/07/2019. History: Preop. Comparison: 09/05/2017. Findings: The cardiomediastinal silhouette and pulmonary vasculature are within normal limits. There is biapical pleural thickening and right upper lobe scarring. Linear opacities are present at the lung bases. A 2.2 cm oval nodular opacity is noted at the left lung base. Degenerative changes are noted in the thoracic spine. There are no acute osseous or soft tissue abnormalities. Impression: Bilateral linear scarring versus atelectasis. Possible left lower lobe pulmonary nodule. Recommend further evaluation with CT chest. Signed by: Chace Hammer on 03/07/2019 3:36 PM
[~2019-03-10] MED LIST changes: +B&O 60MG R/S 60 MG SUPP PR ONE; -CEFTRIAXONE SOD 1 GM VIAL IV ONE; +CEFTRIAXONE SOD 1 GM/NS 50 ML 50 ML IV ONE; +DEXAMETHASONE SOD PHOS INJ 4 MG/ML VIAL ONE; +EPHEDRINE SULFATE INJ 50 MG/10 ML SYR ONE; -HYDROMORPHONE 1MG/1ML INJ IV PRN; +IOPAMIDOL 610MG/1ML 300 MG/ML VIAL IV ONE; +LIDOCAINE HCL 2% LOCAL INJ 5 ML SDV VIAL INJ ONE; -LORAZEPAM INJ 2 MG/ML VIAL IV ONE; +METHENAMINE1 GM; -ONDANSETRON HCL INJ 2 MG/ML VIAL IV PRN; +ONDANSETRON HCL INJ 2MG/ML 2ML 2 MG/ML VIAL ONE; +PRESERVISION A1 EACH; -PROMETHAZINE 12.5MG/ NACL 0.9% 12.5 MG/50 ML BAG IV PRN; +PROPOFOL IV EMULSION 10 MG/ML 20 ML VIAL ONE; +SEVOFLURANE INHAL SOLN 250 ML PEN BTL ONE; -SODIUM CHLORIDE 0.9% 500ML 500 ML IV STA; +TOVIAZ8 MG; +[UNRECOGNIZED DRUG - OTHER]
--- OUTSIDE RECORDS SUMMARY | 2019-03-10 10:18 | XMS REPORT | Continuity of Care Document ---
Author Author [place] Address Unknown Phone Unavailable Care Team Providers Care Skilled Helper Name Role Phone [employer] Unavailable Unavailable Problems Problem Status Onset Date Classification Date Reported Comments Source Urinary tract infection, site not specified 02/17/2018 08/29/2018 [facility] URINARY TRACT INFECTION Active 02/08/2018 [facility] DX: R56.9= Active 02/26/2017 [facility] UNK Active 07/10/2016 [facility] Age-related macular degeneration (disorder) Active Problem 08/29/2018 [facility] Aortic valve stenosis (disorder) Active Problem 08/29/2018 [facility] Bilateral cataracts (disorder) Resolved Problem 08/29/2018 [facility] Central hearing loss (finding) Active Problem 08/29/2018 [facility] Dyspnea on exertion (finding) Active Problem 08/29/2018 [facility] Gastroesophageal reflux disease (disorder) Active Problem 08/29/2018 [facility] Glaucoma (disorder) Active Problem 08/29/2018 [facility] History of - major vascular surgery (context-dependent category) Resolved Problem 08/29/2018 [facility] History of - surgery (context-dependent category) Resolved Problem 08/29/2018 top of head [facility] History of syncope (situation) Active Problem 08/29/2018 [facility] Arthritis (disorder) Active Problem 08/29/2018 [facility] Prostate finding (finding) Resolved Problem 08/29/2018 [facility] Sleep apnea (finding) Active Problem 08/29/2018 [facility] 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 [facility] UNSPECIFIED CONVULSIONS Active [facility] URINARY TRACT INFECTION, SITE NOT SPECIF Active [facility] Medications Medication Details Route Status Patient Instructions Ordering Provider Order Date Source Morphine 4 mg, 1 mL, Route: IVP, Drug form: SOLN, Q2H, Dosing Weight 108.955, kg, PRN Pain Score 7-10, Start date: 07/21/16 8:10:00 FRAME REPAIRER, Duration: 30 day, Stop date: 08/20/16 8:09:00 CSTNotes: (Same as:MORPhine Sulfate) Inactive 07/21/2016 [facility] Acetaminophen 325 MG / Hydrocodone Bitartrate 5 MG Oral Tablet 1 tab, Route: PO, Drug Form: TAB, Dosing Weight 108.955, kg, Q4H, PRN Pain Score 4-6, Start date: 07/21/16 8:10:00 FRAME REPAIRER, Duration: 30 day, Stop date: 08/20/16 8:09:00 CSTNotes: (Same as: [place] 325/5) Do not exceed 4gm/day of acetaminophen. Inactive 07/21/2016 [facility] Nitroglycerin 0.4 mg, 1 tab, Route: SL, Drug form: TAB, Q5Min, Dosing Weight 108.955, kg, PRN Chest Pain, Start date: 07/21/16 8:10:00 FRAME REPAIRER, Duration: 3 doses or times, Stop date: Limited # of timesNotes: (Same as: Nitroquick, Nitrostat) "Do Not Crush" Sublingual tablet Inactive 07/21/2016 [facility] Advil PO, 0 Refill(s) Active 07/20/2016 [facility] dexlansoprazole 60 MG Enteric Coated Capsule [Dexilant] 60 mg=1 cap, PO, Daily, # 30 day, 0 Refill(s) Active 07/20/2016 [facility] meloxicam 15 mg oral tablet 15 mg=1 tab, PO, Daily, # 30 tab, 0 Refill(s) Active 07/20/2016 [facility] Allergies, Adverse Reactions, Alerts No Known Medication Allergies Immunizations No Data Provided for This Section Results Order Name Results Value Reference Range Date Interpretation Comments Source CHEM PANEL eGFR 66 03/10/2017 Result Comment: The eGFR is calculated using the CKD-EPI formula. In most young, healthy individuals the eGFR will be >90 mL/min/1.73m2. The eGFR declines with age. An eGFR of 60-89 may be normal in some populations, particularly the elderly, for whom the CKD-EPI formula has not been extensively validated. Use of the eGFR is not recommended in the following populations:

Individuals with unstable creatinine concentrations, including patients and those with serious co-morbid conditions.

Patients with extremes in muscle mass or diet.

The data above are obtained from the National Kidney Disease Education Program (NKDEP) which additionally recommends that when the eGFR is used in patients with extremes of body mass index for purposes of drug dosing, the eGFR should be multiplied by the estimated BMI. [facility] CHEM PANEL POC Creatinine 1.1 0.5 - 1.4 03/10/2017 [facility] ELECTROLYTES AGAP 11.1 10.0 - 20.0 07/20/2016 [facility] ELECTROLYTES B/C Ratio 13 6 - 25 07/20/2016 [facility] ELECTROLYTES Globulin 4.0 2.7 - 4.2 07/20/2016 [facility] ELECTROLYTES A/G Ratio 0.8 0.7 - 1.6 07/20/2016 [facility] ELECTROLYTES eGFR 60 07/20/2016 Result Comment: The eGFR is calculated using the CKD-EPI formula. In most young, healthy individuals the eGFR will be >90 mL/min/1.73m2. The eGFR declines with age. An eGFR of 60-89 may be normal in some populations, particularly the elderly, for whom the CKD-EPI formula has not been extensively validated. Use of the eGFR is not recommended in the following populations:

Individuals with unstable creatinine concentrations, including patients and those with serious co-morbid conditions.

Patients with extremes in muscle mass or diet.

The data above are obtained from the National Kidney Disease Education Program (NKDEP) which additionally recommends that when the eGFR is used in patients with extremes of body mass index for purposes of drug dosing, the eGFR should be multiplied by the estimated BMI. [facility] ELECTROLYTES Glucose Lvl 124 70 - 99 07/20/2016 [facility] ELECTROLYTES Alk Phos 100 39 - 136 07/20/2016 [facility] ELECTROLYTES Bili Total 0.4 0.2 - 1.3 07/20/2016 [facility] ELECTROLYTES AST 14 0 - 37 07/20/2016 [facility] ELECTROLYTES Potassium Lvl 4.1 3.5 - 5.1 07/20/2016 [facility] ELECTROLYTES Sodium Lvl 140 135 - 145 07/20/2016 [facility] ELECTROLYTES Total Protein 7.1 6.4 - 8.4 07/20/2016 [facility] ELECTROLYTES Albumin Lvl 3.1 3.5 - 5.0 07/20/2016 [facility] ELECTROLYTES ALT 17 0 - 65 07/20/2016 [facility] ELECTROLYTES BUN 16 7 - 22 07/20/2016 [facility] ELECTROLYTES Creatinine Lvl 1.20 0.50 - 1.40 07/20/2016 [facility] ELECTROLYTES Chloride Lvl 105 95 - 109 07/20/2016 [facility] ELECTROLYTES CO2 28 24 - 32 07/20/2016 [facility] ELECTROLYTES Calcium Lvl 8.2 8.5 - 10.5 07/20/2016 [facility] HEMATOLOGY Monocytes 8.0 2.0 - 12.0 07/20/2016 [facility] HEMATOLOGY Segs 69.5 45.0 - 75.0 07/20/2016 [facility] HEMATOLOGY Lymphocytes 15.9 20.0 - 40.0 07/20/2016 [facility] HEMATOLOGY Eosinophils # 0.5 0.0 - 0.5 07/20/2016 [facility] HEMATOLOGY Basophils # 0.1 0.0 - 0.2 07/20/2016 [facility] HEMATOLOGY Monocytes # 0.7 0.0 - 0.8 07/20/2016 [facility] HEMATOLOGY Basophils 0.6 0.0 - 1.0 07/20/2016 [facility] HEMATOLOGY Segs-Bands # 5.8 1.5 - 8.1 07/20/2016 [facility] HEMATOLOGY Lymphocytes # 1.3 1.0 - 5.5 07/20/2016 [facility] HEMATOLOGY Eosinophils 6.0 0.0 - 4.0 07/20/2016 [facility] HEMATOLOGY Microcyte 1+ *ABN* (07/20/16 10:39 AM) None Seen 07/20/2016 [facility] HEMATOLOGY RDW 17.3 11.5 - 14.5 07/20/2016 [facility] HEMATOLOGY Platelet 283 133 - 450 07/20/2016 [facility] HEMATOLOGY MCHC 32.2 32.0 - 36.0 07/20/2016 [facility] HEMATOLOGY MPV 7.7 7.4 - 10.4 07/20/2016 [facility] HEMATOLOGY WBC 8.3 3.7 - 10.4 07/20/2016 [facility] HEMATOLOGY RBC 5.40 4.70 - 6.10 07/20/2016 [facility] HEMATOLOGY Hgb 12.5 14.0 - 18.0 07/20/2016 [facility] HEMATOLOGY Hct 38.9 42.0 - 54.0 07/20/2016 [facility] HEMATOLOGY MCH 23.1 27.0 - 31.0 07/20/2016 [facility] HEMATOLOGY MCV 72.0 80.0 - 94.0 07/20/2016 [facility] LIPIDS CHD Risk 5.76 4.00 - 7.30 07/20/2016 [facility] LIPIDS VLDL 29 07/20/2016 [facility] LIPIDS LDL (Calculated) 90 <=99 mg/dL 07/20/2016 [facility] LIPIDS Trig 144 <=149 mg/dL 07/20/2016 [facility] LIPIDS HDL 25 >=61 mg/dL 07/20/2016 [facility] LIPIDS Chol 144 <=199 mg/dL 07/20/2016 [facility] Pathology Reports No Data Provided for This Section Diagnostic Reports Report Value Date Source Chest 1 v for Placement DX Patient Name: LIZZIE KENDALL : 1940; Age: 77 years y/o Male MR: [id number] * CHEST, portable, 1 view HISTORY: Status post PICC placement COMPARISON: None TECHNIQUE: A portable frontal radiograph of the chest was obtained following PICC placement IMPRESSION: 1. The tip of the right upper extremity PICC is in the mid superior vena cava. The catheter appears to be in good position to utilize for venous access. 2. No evidence of an active or acute process. The lungs are clear. There are no pleural effusions. There are mild chronic appearing nonspecific interstitial changes. 3. The heart is normal in size. 4. There are mild scattered degenerative changes involving the thoracic spine. The regional skeleton is otherwise unremarkable. SL: [id number] 02/09/2018 [facility] Brain w/wo contrast MRI Patient Name: LIZZIE KENDALL : 1940; Age: 76 years Male MR: [id number] Study: Brain w/wo contrast MRI 03/10/2017 9:12 AM CDT Clinical Indication: R56.9 SEIZURE - Per pt c/o vertigo and a few seizure- convulsion episodes in the past 8 weeks. He states he is not on seixure meds. 20cc Dot[employer] lot# [id number]. [place].. COMPARISON: None TECHNIQUE: Multiplanar pre- and post-gadolinium contrast-enhanced MRI of the brain is performed on a 1.5 [place] magnet. Gadolinium was administered. Full and complete exam was performed. FINDINGS: BRAIN PARENCHYMA: There is mild generalized brain parenchymal atrophy. Moderate nonspecific periventricular white matter foci of increased T2 and FLAIR signal are seen, likely related to small vessel disease. There is no mass effect or midline shift. There are no extra-axial fluid collections. The corpus callosum appears normal. There is no diffusion weighted imaging or ADC map abnormality to suggest acute/subacute ischemia. There is no magnetic susceptibility to suggest recent or remote intracranial hemorrhage. There is no abnormal contrast enhancement. Presumed bilateral intraparotid lymph nodes. High-resolution images of the temporal lobes demonstrate symmetric volume and signal bilaterally. CEREBELLOPONTINE REGIONS AND SKULL BASE: The cerebellopontine angles appear normal. The skull base, craniocervical junction, and brainstem are normal. The optic chiasm is normal. The sella and pineal regions are normal. VENTRICLES: The ventricles are normal in size and configuration. The basilar cisterns are normal. VISUALIZED VESSELS: The expected intracranial flow voids are present. ORBITS, VISUALIZED PARANASAL SINUSES AND MASTOIDS: The visualized orbits are normal. Complete opacification of the right maxillary sinus. Mild ethmoid sinus mucosal thickening. Minimal fluid in the bilateral mastoid sinuses. IMPRESSION: 1. No definite seizure focus identified. 2. No acute intracranial abnormality without acute stroke, hemorrhage or mass. 3. Generalized brain parenchymal atrophy with associated nonspecific periventricular white matter disease changes/small vessel disease. 4. Complete opacification of the right maxillary sinus. 5. Minimal fluid in the bilateral mastoid sinuses. SL: [place] 03/10/2017 [facility] Consultation Notes No Data Provided for This Section Discharge Summaries No Data Provided for This Section History and Physicals No Data Provided for This Section Vital Signs Vital Sign Value Date Comments Source Height 185.42 cm 02/09/2018 [facility] Weight 97.273 02/09/2018 [facility] BMI Calculated 28.29 02/09/2018 [facility] Systolic (mm Hg) 155 07/21/2016 [facility] Diastolic (mm Hg) 60 07/21/2016 [facility] Systolic (mm Hg) 150 07/20/2016 [facility] Diastolic (mm Hg) 87 07/20/2016 [facility] Temperature Oral (F) 98.1 F 07/20/2016 [facility] Respitory Rate 20 07/20/2016 [facility] Heart Rate 73 07/20/2016 [facility] Weight 108.955 07/20/2016 [facility] BMI Calculated 31.69 07/20/2016 [facility] Height 185.42 cm 07/20/2016 [facility] Encounters Location Location Details Encounter Type Encounter Number Reason For Visit Attending Provider ADM Date DC Date Status Source [facility] Bedded Outpatient [id number] Jose Armando Brito 07/21/2016 07/21/2016 [facility] Outpatient [id number] Ai Myerslora 03/10/2017 03/11/2017 [facility] Outpatient [id number] Vivian So 02/09/2018 02/10/2018 [facility] Procedures Procedure Code Date Perfomer Comments Source Cataract extraction, insertion of intraocular lens and trabeculectomy [id number] [facility] Eye operation<sup>1</sup> [id number] drain to lower pressure [facility] Lobectomy of lung [id number] [facility] Trabecular meshwork operation [id number] [facility] Varicose vein operation [id number] [facility] Assessment and Plan No Data Provided for This Section Plan of Care No Data Provided for This Section Social History Social History Date Source Social History TypeResponse Smoking Status Former smoker; Exposure to Tobacco Smoke None; Cigarette Smoking Last 365 Days No; Reg Smoking Cessation Counseling No entered on: 07/20/16 07/20/2016 [facility] Family History No Data Provided for This Section Advance Directives No Data Provided for This Section Functional Status No Data Provided for This Section
--- OUTSIDE RECORDS SUMMARY | 2019-03-10 10:18 | XMS REPORT | Clinical Summary ---
Author Author [facility] Address Unknown Phone Unavailable Care Team Providers Care Critical Care Transport Nurse Name Role Phone Ronaldo Mcgee MD PCP Allergies Not on File Medications Not on file Active Problems Not on file Social History Date Tobacco Use Types Packs/Day Years Used Never Assessed Sex Assigned at Date Recorded Not on file Industry Job Start Date Occupation Not on file Not on file Not on file Travel End Travel History Travel Start No recent travel history available. Last Filed Vital Signs Not on file Plan of Treatment Health Maintenance Due Date Last Done Comments COLONOSCOPY SCREENING 1992 SHINGLES VACCINES (#1) 1992 65+ PNEUMOCOCCAL VACCINE 10/20/2007 (1 of 2 - PCV13) INFLUENZA VACCINE 01/19/2019 Results Not on fileafter 03/09/2018 Insurance Type Payer Benefit Subscriber ID Effective Phone Address Plan / Dates Group Medicare MEDICARE MEDICARE xxxxxxxxxx 2011-P [place], PART A AND resent [place] B Indemnity BCBS BCBS xxxxxxxxxxxx 2012-P PAR/TRAD resent PLAN Advance Directives For more information, please contact: [phone] Patient Washcloth Folder Explanation Type Date Recorded Advance Directives, 02/02/2017 4:06 PM Living Will and Medical Power of Casting Molder
--- OUTSIDE RECORDS SUMMARY | 2019-03-10 10:18 | XMS REPORT | Clinical Summary ---
Author Author [facility] Address Unknown Phone Unavailable Care Team Providers Care Refinery Operator Reforming Unit Name Role Phone Ronaldo Mcgee PCP Allergies No Known Allergies Medications End Date Status Medication Sig Dispensed Refills Start Date Active meloxicam (MOBIC) 7.5 MG Take 7.5 mg 0 tablet by mouth daily. Active dexlansoprazole 60 mg Take 60 mg by 0 capsule mouth daily. Active tamsulosin (FLOMAX) 0.4 Take 0.4 mg 0 mg Cp24 24 hr capsule by mouth daily. Active brimonidine-timolol 1 drop 2 0 (COMBIGAN) 0.2-0.5 % (two) times ophthalmic solution daily. Active difluprednate (DUREZOL) Apply to 0 0.05 % Drop eye(s). Active moxifloxacin (VIGAMOX) 1 drop 3 0 0.5 % ophthalmic solution (three) times daily. Active Problems Problem Noted Date Primary open angle glaucoma of both eyes, severe stage 03/26/2016 Social History Date Tobacco Use Types Packs/Day Years Used Never Smoker Alcohol Use Drinks/Week oz/Week Comments No Sex Assigned at Date Recorded Not on file Industry Job Start Date Occupation Not on file Not on file Not on file Travel End Travel History Travel Start No recent travel history available. Last Filed Vital Signs Not on file Plan of Treatment Not on file Implants Device Identifier Shelf Expiration Date Model / Serial / Lot Implanted Type Area Manufactur er 01/05/2018 FP-7 / [id number] / [id number] Valve Glaucoma Ahmed Flx Plt Fp-7 Ophthalmol Left: Eye [facility] - [id number] ogy MED Implanted: Qty: 1 on 03/30/2016 by Glenn Ngo MD 07/29/2016 HALO HALF / [id number] / N/A Halo Cornea Half/Half Thickness Left: Eye [employer] Implanted: Qty: 1 on 03/30/2016 by Glenn Haynes MD Results Not on fileafter 03/09/2018 Insurance Payer Benefit Subscriber ID Type Phone Address Plan / Group MEDICARE MEDICARE A xxxxxxxxxx Medicare B BLUE CROSS/BLUE SHIELD BCBS xxxxxxxxxxxx PPO [phone] [address] [place] [address] [place]
--- OUTSIDE RECORDS SUMMARY | 2019-03-10 10:18 | XMS REPORT | Summary of Care ---
Author Author [facility] Organization [facility] Address Unknown Phone Unavailable Encounter HQ Dina(FIN) [id number] Date(s): 02/09/18 - 02/09/18 [facility] [address] [place] [address]- Encounter Diagnosis Urinary tract infection, site not specified (Final) - 02/16/18 Discharge Disposition: Home or Self Care Attending Physician: Vivian So MD Referring Physician: Vivian So MD Vital Signs Most recent to 1 oldest [Reference Range]: Height 185.42 cm (02/09/18 12:49 PM) Weight 97.273 kg (02/09/18 12:49 PM) Body Mass Index 28.29 m2 (02/09/18 12:49 PM) Problem List Condition Effective Dates Status Health Status Informant Age-related macular Active degeneration(Confirm ed) Aortic valve Active stenosis(Confirmed) Bilateral Resolved cataracts(Confirmed) Central hearing Active loss(Confirmed) AGUILAR (dyspnea on Active exertion)(Confirmed) GERD Active (gastroesophageal reflux disease)(Confirmed) Acute Active glaucoma(Confirmed) H/O varicose vein Resolved ligation(Confirmed) H/O squamous cell Resolved carcinoma excision(Confirmed)1 H/O Active syncope(Confirmed) Arthritis(Confirmed) Active Finding of Resolved prostate(Confirmed) Apnea, Active sleep(Confirmed) 1top of head Allergies, Adverse Reactions, Alerts Substance Reaction Severity Status NKDA Active Medications No data available for this section Results No data available for this section Immunizations No data available for this section Procedures Procedure Date Related Diagnosis Body Site Status Cataract extraction, insertion of intraocular Completed lens and trabeculectomy Eye operation1 Completed Lobectomy of lung Completed Trabecular meshwork operation Completed Varicose vein operation Completed 1drain to lower pressure Social History Social History Type Response Smoking Status Former smoker; Exposure to Tobacco Smoke None; Cigarette Smoking Last 365 Days No; Reg Smoking Cessation Counseling No entered on: 07/20/16 Assessment and Plan No data available for this section
[2019-03-10 13:45] VITALS: BP 144/75
--- NOTE | 2019-04-18 07:00 | Operative Report ---
DATE OF PROCEDURE: 03/10/2019 SURGEON: Francisco Javier Bruno MD PREOPERATIVE DIAGNOSES: 1. Interstitial cystitis. 2. Urinary tract infections. 3. Urethral stricture disease. 4. Gross hematuria. POSTOPERATIVE DIAGNOSES: 1. Interstitial cystitis. 2. Urinary tract infections. 3. Urethral stricture disease. 4. Gross hematuria. OPERATION PERFORMED: 1. Cystourethroscopy with calibration and dilation of urethral stricture (separate procedure performed for diagnosis of stricture). 2. Cystourethroscopy with bilateral ureteral catheterization and retrograde ureteropyelography (separate procedure performed for the urinary tract infection and gross hematuria). 3. Interpretation of retrograde ureteropyelography. 4. Supervision of fluoroscopy, no radiologist present. 5. Cystourethroscopy with hydrodistention (separate procedure informed for the interstitial cystitis). ANESTHESIA: General. COMPLICATIONS: None. CLINICAL SUMMARY: Alli Mendoza Junior is a complicated 78-year-old man, who has had severe and very large BPH. He is status post transurethral resection of the prostate. He has had significant overactive bladder symptomatology and persistent urge incontinence. The patient is brought for the above procedures. He is aware of the risks of bleeding, infection, injury to adjacent structures, need for additional procedures, and he elected to proceed. OPERATIVE PROCEDURE IN DETAIL: Informed consent was verified. Alli Mendoza Junior was properly identified, taken to the operating room, and placed on the cystoscopy table in supine position. Anesthesia was uneventfully begun. The patient was then carefully and gently repositioned in dorsal lithotomy position with all pressure points well padded. His genitalia were prepared and draped in usual sterile fashion. A 22.5-Wallisian cystoscope sheath with visual obturator in place was atraumatically inserted into the patient's urethra. The urethra exhibited panurethral relatively wide caliber urethral stricture disease. This was calibrated to approximately 18-Wallisian in size and gently dilated through the sheath to 22.5-Wallisian in size. We went through the normal sphincteric region and we went through the prostate bed, which was wide open being status post transurethral resection of the prostate with complete re-epithelialization. We went to the patient's bladder, where panendoscopy revealed a small "hole" between the trigone and the bladder neck posteriorly, but there were no tumors, there were no stones, there were no true diverticula. Trabeculations were noted throughout the bladder. An 8-Wallisian catheter was used to cannulate each ureter and retrograde ureteropyelography was performed. Interpretation of retrograde ureteropyelography contrast was instilled in retrograde fashion bilaterally. There were no tumors, no stones, no diverticula. Unobstructed drainage was observed bilaterally fluoroscopically. There was ureterectasis of both distal ureters. There appeared to be caused by the thick bladder and relative narrowing at the level of the intramural ureter. Nevertheless, unobstructed drainage was observed bilaterally fluoroscopically. We tried to inject contrast with a cone-tipped catheter into the small hole that was noted. We cannot document a fistula fluoroscopically. Hydrodistention of the bladder was then carried out to 80 cm of water height and held in place for exactly 2 minutes by the clock. This revealed a bladder capacity under anesthesia that is extremely small and it was only 300 mL. Panendoscopy following hydrodistention revealed some mild glomerulations and mild erythema. The patient's bladder was drained and the cystoscope was withdrawn. Belladonna and opium suppository were placed revealing a large prostate, smooth, nonfluctuant without any nodules. The patient was then uneventfully reversed from anesthesia and taken to recovery room in stable condition. There were no complications to the procedure. He tolerated the procedure well. Explicit postop instructions were given. We will follow the patient up in the office. Upon followup, we plan on performing uroflowmetry and bladder ultrasonography as well as assessing the patient's AUA symptom score as well as OABSS score. Francisco Javier Bruno MD [place]/MODL /[id number] cc: Ronaldo Mcgee MD
== END | disposition home or self-care (01) ==
LOC: OR 09:35
PROVIDERS: ATTEND Urology
DX: N30.10 Interstitial cystitis (chronic) without hematuria (principal); N32.81 Overactive bladder; N35.919 Unspecified urethral stricture, male, unspecified site; N40.1 Benign prostatic hyperplasia with lower urinary tract symptoms; R39.14 Feeling of incomplete bladder emptying; N32.89 Other specified disorders of bladder; N39.41 Urge incontinence; Z98.890 Other specified postprocedural states; I10 Essential (primary) hypertension; I45.10 Unspecified right bundle-branch block; Z68.31 Body mass index [BMI] 31.0-31.9, adult; Z85.828 Personal history of other malignant neoplasm of skin
CPT/HCPCS: 36415; 52260; 71046; 74420; 85025; 93005; J0696; J1100; J2001; J2405; J2704; Q9967

== ENCOUNTER → 2022-10-23 | Outpatient (CLI) | payer MEDICARE, BC ==
[~2022-10-23] MED LIST changes: -B&O 60MG R/S 60 MG SUPP PR ONE; -CEFTRIAXONE SOD 1 GM/NS 50 ML 50 ML IV ONE; -DEXAMETHASONE SOD PHOS INJ 4 MG/ML VIAL ONE; -EPHEDRINE SULFATE INJ 50 MG/10 ML SYR ONE; -IOPAMIDOL 610MG/1ML 300 MG/ML VIAL IV ONE; -LIDOCAINE HCL 2% LOCAL INJ 5 ML SDV VIAL INJ ONE; -ONDANSETRON HCL INJ 2MG/ML 2ML 2 MG/ML VIAL ONE; -PROPOFOL IV EMULSION 10 MG/ML 20 ML VIAL ONE; -SEVOFLURANE INHAL SOLN 250 ML PEN BTL ONE
== END ==
LOC: RAD 10:06
PROVIDERS: ATTEND Internal Medicine
DX: Z01.810 Encounter for preprocedural cardiovascular examination (principal)
CPT/HCPCS: 93306